=== PATIENT | male | born 1960 | race Caucasian/White ===

== ENCOUNTER 2020-10-20 12:49 | Inpatient (IN) ==
[2020-10-20] MEDS ORDERED: THIAMINE HCL 200 MG in SODIUM CHLORIDE 0.9% 50 ML IV STA (13:12)
[2020-10-20] MEDS ORDERED: FOLIC ACID 1 MG in SYRINGE 9.8 ML IV STA (13:12)
--- NOTE | 2020-10-20 13:21 | Emergency Department Note ---
Impression & Plan Abdominal ascites, Alcohol abuse ED Provider Note Provider: Dusty Emmanuel MD DATE OF SERVICE:10/20/2020 CHIEF COMPLAINT: Shortness of breath, abdominal swelling HISTORY OF PRESENT ILLNESS: Patient is a 60-year-old gentleman history of hypertension GERD and prior stroke with some resultant left-sided weakness presenting today via ambulance from home due to some difficulty breathing as well as abdominal swelling. Patient states over the past several weeks (2-3) he is noted new onset of increased abdominal swelling as well as swelling of his legs. Patient denies any falls. Denies abdominal pain or nausea or vomiting. Patient denies fever chills. States his breathing is begun to got worse and he has been unable to walk or get to the bathroom given the swelling. Patient states he is a smoker and has a chronic cough that is unchanged. Patient states the swelling in his abdomen is bothering him some and denies a history of this. Station states he is a heavy alcohol drinker and last drank last night with beer and vodka. Patient states he is not been taking his blood pressure medicine or other medicine for several months. He reports a history of prior stroke with some left-sided weakness previously. States has been feeling more fatigued but denies any confusion or headache. REVIEW OF SYSTEMS: A total of 10 review of systems was obtained and negative except as stated above in the HPI. PAST MEDICAL HISTORY: As noted above MEDICATIONS: States has not been taking his recent prescribed medications SOCIAL HISTORY: Smoker, heavy alcohol user, lives at home in apartment alone PHYSICAL EXAM: GENERAL: alert and oriented seated on stretcher Head: normocephalic and atraumatic EYES: No injection, discharge or icterus. NECK: Trachea midline. Supple. ENT: Mucous membranes pink and moist. LUNGS: Airway patent. No retractions. Breath sounds with some expiratory wheeze and diminished bases. Slightly tachypneic HEART: Regular tachycardic rate and rhythm. No chest wall tenderness ABDOMEN: Soft and non-tender, without guarding or rebound but obviously signific antly distended but not tense. There is some protuberance of the umbilical which is nontender. The inguinal and scrotal area has urine and some stool present with erythema and some skin breakdown present in the inguinal creases as well as over the scrotum. No crepitus appreciated. SKIN: Acyanotic, warm, dry, without rashes EXTREMITIES: Appears to be some chronic stasis changes lower extremities with 2+ edema bilaterally. NEUROLOGICAL: No aphasia. No facial droop or slurred speech. Limited to no motor function of the left arm and leg. Patient states is chronic from prior stroke. Sensation left arm and leg intact. EK bpm sinus tachycardia the PVC or PAC. No acute ST segment elevation is noted some anterior T wave inversions are noted. CONTINUOUS CARDIAC MONITORING: was ordered and showed a heart rate of 120 bpm in sinus tachycardia Patient's laboratory studies and imaging reviewed. Differential includes Infection, dehydration, metabolic abnormality, hypo/hyperglycemia, electrolyte disturbance, anemia, hypoxia, cardiac sources, intracerebral event, toxicologic, neurologic, as well as other pathologies. IMPRESSION/MEDICAL DECISION MAKING: Patient appears to have significant lower extremity swelling as well as abdominal swelling. With his history of heavy alcohol use wonder if this is new onset ascites from cirrhosis. He is wheezy and a heavy smoker. X-rays obtained as well as Covid test. Question if his breathing is again resolved from the abdominal distention but likely not hypoxic here. Denies significant josiah pain, nausea vomiting, or fevers and lower suspicion for acute infectious cause at this point. Basic labs, ammonia, INR, and medical alcohol were sent in addition to basic labs. Lower suspicion this is ACS but an EKG and troponin were obtained. Given some IV folic acid and thiamine given his history of alcohol abuse. Patient denies significant history of alcohol withdrawal and denies hallucinations at this point. Last drink was again noted by the patient to be last evening. Patient is willing for further inpatient care at to cons ider reducing and possibly stopping drinking but states this would be quite hard. CBC shows no leukocytosis or anemia. INR is not elevated. Lipase not elevated doubt pancreatitis. AST and ALT not elevated. Mild hyponatremia of 130 is noted without significantly abnormal renal function. Magnesium not abnormal. Potassium within normal limits. Troponin undetectable. Albumin is slightly low at 2.5. Bilirubin 1.6. Chest x-ray per my review and the radiology poor questions right pleural effusion and possible right lower lobe density likely atelectasis patient does not have significant clinical symptoms for pneumonia at this time. Do question if some of his hypertension and tachycardia here are related to early withdrawal from alcohol. Given a dose of 5% albumin to help with intravascular repletion and to try to help hold some of the fluid intravascularly as opposed to third spacing. Patient was in agreement the plan for admission and the hospitalist contacted. Hospitalist ordered Zamora with nursing & myself attempted place this Zamora but the patient has a buried penis. Were unsuccessful. There is some irritation and poorly kept area in the inguinal and genital region the patient states has not been able to properly care for himself there. Do not believe this represents Sarah's gangrene. Hospitalist team aware. DIAGNOSIS: Abdominal ascites, alcohol abuse DISPOSITION: Hospitalist will evaluate Patient was agreeable with this plan. 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 HTN (hypertension) Hx of fracture of rib Lumbar compression fracture Surgical History (Updated 10/20/20 @ 15:23 by Stacy Sellers PA-C) History of ankle surgery History of sinus surgery History of total knee arthroplasty Family History (Updated 10/20/20 @ 15:35 by Stacy Sellers PA-C) Father Diabetes Heart disease CKD (chronic kidney disease) Other Family history non-contributory Social History (Updated 10/20/20 @ 15:35 by Stacy Sellers PA-C) Smoking Status: Current every day smoker Tobacco Type: Cigarettes packs per day: 2.5; Cigarettes Per Day: 2-3PPD; Do You Dip or Chew Tobacco: No; Hx Alcohol Use: Yes Alcohol type: beer and hard liquor Alcohol Intake Frequency Comment: 7 drinks per day. 3 beers, 3-4 shots Hx Substance Use: Yes Prescribed Medications: Marijuana Preferred Language: Lao Communication Ability: Effective Physical Therapist Aide Required: No Beliefs That Will Affect Care: None marital status: Current Living Situation: Alone current occupational status: disabled Other Information That Helps Us Care for You: No Feels Safe at Home: Yes Safety Concerns: Feels Safe At This Time Assistive Devices: Cane and Glasses Allergies Allergies Allergy/AdvReac Type Severity Reaction Status Date / Time latex Allergy Intermediate RASH Verified 10/20/20 13:57 bee venom protein (honey bee) Allergy Unknown CARDIAC Unverified 10/20/20 13:57 SYMPTOMS bupropion Allergy Unknown Verified 10/20/20 13:57 cat dander Allergy Unknown HIVES Verified 10/20/20 13:57 codeine AdvReac Unknown INTOLERANCE Verified 10/20/20 13:57 -INSOMNIA Home Meds Home Medications Medication Instructions Recorded Confirmed naproxen sodium [Aleve] 440 mg PO Q12 PRN 09/03/18 10/20/20 omeprazole 20 mg PO DAILY 10/20/20 10/20/20 Results & Data (ED) Vital Signs Vital Signs - 24 hr 10/20/20 12:56 10/20/20 13:00 10/20/20 13:03 Temperature 36.7 C Temperature Source Oral Pulse Rate 124 H 124 H 125 H Pulse Rate [Left Finger] Pulse Rate from SpO2 Sensor 126 H 125 H Respiratory Rate 30 H 30 H 28 H Respiratory Depth Shallow Respiratory Pattern Tachypnea Blood Pressure 174/105 H 174/105 H Blood Pressure [Right Arm] Blood Pressure Mean 114 128 Blood Pressure Mean [Right Arm] Pulse Oximetry 97 96 99 Oxygen Delivery Method Room Air Oxygen Flow Rate Sepsis Recent Fever Within 48 Hours No Sepsis New/Unexplained Change in Mental Status No Sepsis Action Taken by Nursing No Action Required 10/20/20 13:30 10/20/20 13:34 10/20/20 14:00 Temperature Temperature Source Pulse Rate 116 H 111 H Pulse Rate [Left Finger] Pulse Rate from SpO2 Sensor 116 H 102 H Respiratory Rate 28 H 24 Respiratory Depth Respiratory Pattern Blood Pressure 176/101 H Blood Pressure [Right Arm] Blood Pressure Mean 115 Blood Pressure Mean [Right Arm] Pulse Oximetry 95 99 96 Oxygen Delivery Method Room Air Oxygen Flow Rate Sepsis Recent Fever Within 48 Hours Sepsis New/Unexplained Change in Mental Status Sepsis Action Taken by Nursing 10/20/20 14:01 10/20/20 14:31 10/20/20 14:49 Temperature Temperature Source Pulse Rate 120 H 121 H 122 H Pulse Rate [Left Finger] 122 H Pulse Rate from SpO2 Sensor 121 H 127 H 122 H Respiratory Rate 28 H 27 H 23 Respiratory Depth Respiratory Pattern Blood Pressure 149/103 H Blood Pressure [Right Arm] 149/103 H Blood Pressure Mean 122 Blood Pressure Mean [Right Arm] 118 Pulse Oximetry 95 95 95 Oxygen Delivery Method Room Air Oxygen Flow Rate Sepsis Recent Fever Within 48 Hours Sepsis New/Unexplained Change in Mental Status Sepsis Action Taken by Nursing 10/20/20 15:00 10/20/20 15:01 10/20/20 15:30 Temperature Temperature Source Pulse Rate 123 H 120 H 126 H Pulse Rate [Left Finger] Pulse Rate from SpO2 Sensor 130 H 121 H 123 H Respiratory Rate 22 24 29 H Respiratory Depth Respiratory Pattern Blood Pressure 150/106 H 178/121 H Blood Pressure [Right Arm] Blood Pressure Mean 110 128 Blood Pressure Mean [Right Arm] Pulse Oximetry 91 94 95 Oxygen Delivery Method Oxygen Flow Rate Sepsis Recent Fever Within 48 Hours Sepsis New/Unexplained Change in Mental Status Sepsis Action Taken by Nursing 10/20/20 15:31 10/20/20 16:00 10/20/20 16:02 Temperature Temperature Source Pulse Rate 120 H 129 H 122 H Pulse Rate [Left Finger] Pulse Rate from SpO2 Sensor 112 H 122 H Respiratory Rate 29 H 29 H 27 H Respiratory Depth Respiratory Pattern Blood Pressure 151/111 H Blood Pressure [Right Arm] Blood Pressure Mean 122 Blood Pressure Mean [Right Arm] Pulse Oximetry 94 94 Oxygen Delivery Method Oxygen Flow Rate Sepsis Recent Fever Within 48 Hours Sepsis New/Unexplained Change in Mental Status Sepsis Action Taken by Nursing 10/20/20 16:26 Temperature 36.7 C Temperature Source Oral Pulse Rate 122 H Pulse Rate [Left Finger] Pulse Rate from SpO2 Sensor Respiratory Rate 27 H Respiratory Depth Respiratory Pattern Blood Pressure 151/111 H Blood Pressure [Right Arm] Blood Pressure Mean Blood Pressure Mean [Right Arm] Pulse Oximetry 94 Oxygen Delivery Method Nasal Cannula Oxygen Flow Rate 3 Sepsis Recent Fever Within 48 Hours Sepsis New/Unexplained Change in Mental Status Sepsis Action Taken by Nursing Laboratory Data Result diagrams: 10/20/20 13:12 10/20/20 13:12 Lab Results 10/20/20 10/20/20 10/20/20 Range/Units 13:12 13:12 13:12 WBC 10.71 (4.8-10.8) K/uL RBC 4.49 L (4.7-6.1) M/uL Hgb 14.6 (14.0-18.0) g/dL Hct 42.6 (42-52) % MCV 94.9 (80-100) fL MCH 32.5 (25-34) pg MCHC 34.3 (32-36) g/dL RDW Std Deviation 53.7 H (36.4-46.3) fL RDW Coeff of Zachary 15.5 H (11.5-14.5) % Plt Count 236 (130-400) K/uL MPV 9.9 (7.4-10.4) fL Immature Gran % (Auto) 0.2 % Neut % (Auto) 82.5 % Lymph % (Auto) 6.4 % [place] % (Auto) 10.1 % Eos % (Auto) 0.3 % Baso % (Auto) 0.5 % Neut # (Auto) 8.84 H (1.4-6.5) K/uL Lymph # (Auto) 0.69 L (1.2-3.4) K/uL [place] # (Auto) 1.08 H (0.11-0.59) K/uL Eos # (Auto) 0.03 (0-0.5) K/uL Baso # (Auto) 0.05 (0-0.2) K/uL Immature Gran # (Auto) 0.02 (0.00-0.02) K/uL PT 11.9 (9.0-12.0) Seconds INR 1.1 (0.9-1.1) APTT 28.5 (21.0-31.0) Seconds PTT Ratio 1.0 Sodium (136-145) mmol/L Potassium (3.5-5.1) mmol/L Chloride (98-107) mmol/L Carbon Dioxide (21-32) mmol/L Anion Gap (3-11) BUN (7-18) mg/dl Creatinine (0.6-1.4) mg/dl Est Cr Clr Drug Dosing ml/min Est GFR ( Amer) Est GFR (Non-Af Amer) BUN/Creatinine Ratio (10-20) Glucose (70-99) mg/dl Lactate 3.6 H* (0.4-2.0) mmol/L Calcium (8.5-10.1) mg/dl Phosphorus (2.5-4.9) mg/dl Magnesium (1.8-2.4) mg/dl Total Bilirubin (0.2-1) mg/dl AST (15-37) U/L ALT (12-78) U/L Alkaline Phosphatase (45-117) U/L Ammonia (11-32) umol/L Troponin I (0-0.045) ng/ml Total Protein (6.4-8.2) gm/dl Albumin (3.4-5.0) gm/dl Globulin (2.5-4.0) gm/dl Albumin/Globulin Ratio (0.9-2) Lipase (73-393) U/L Ethyl Alcohol mg/dL (0-3) mg/dl COVID-19 Eval Order SARS-CoV-2 (PCR) (Negative) Influenza Type A (PCR) (Neg) Influenza Type B (PCR) (Neg) RSV (RT-PCR) (Neg) 10/20/20 10/20/20 10/20/20 Range/Units 13:12 13:29 13:29 WBC (4.8-10.8) K/uL RBC (4.7-6.1) M/uL Hgb (14.0-18.0) g/dL Hct (42-52) % MCV (80-100) fL MCH (25-34) pg MCHC (32-36) g/dL RDW Std Deviation (36.4-46.3) fL RDW Coeff of Zachary (11.5-14.5) % Plt Count (130-400) K/uL MPV (7.4-10.4) fL Immature Gran % (Auto) % Neut % (Auto) % Lymph % (Auto) % [place] % (Auto) % Eos % (Auto) % Baso % (Auto) % Neut # (Auto) (1.4-6.5) K/uL Lymph # (Auto) (1.2-3.4) K/uL [place] # (Auto) (0.11-0.59) K/uL Eos # (Auto) (0-0.5) K/uL Baso # (Auto) (0-0.2) K/uL Immature Gran # (Auto) (0.00-0.02) K/uL PT (9.0-12.0) Seconds INR (0.9-1.1) APTT (21.0-31.0) Seconds PTT Ratio Sodium 130 L (136-145) mmol/L Potassium 4.1 (3.5-5.1) mmol/L Chloride 102 (98-107) mmol/L Carbon Dioxide 24 (21-32) mmol/L Anion Gap 4.0 (3-11) BUN 16 (7-18) mg/dl Creatinine 0.57 L (0.6-1.4) mg/dl Est Cr Clr Drug Dosing 188.4 ml/min Est GFR ( Amer) 128.5 Est GFR (Non-Af Amer) 110.8 BUN/Creatinine Ratio 27.2 H (10-20) Glucose 86 (70-99) mg/dl Lactate (0.4-2.0) mmol/L Calcium 8.4 L (8.5-10.1) mg/dl Phosphorus 2.4 L (2.5-4.9) mg/dl Magnesium 2.2 (1.8-2.4) mg/dl Total Bilirubin 1.6 H (0.2-1) mg/dl AST 41 H (15-37) U/L ALT 10 L (12-78) U/L Alkaline Phosphatase 139 H (45-117) U/L Ammonia (11-32) umol/L Troponin I < 0.015 (0-0.045) ng/ml Total Protein 7.5 (6.4-8.2) gm/dl Albumin 2.5 L (3.4-5.0) gm/dl Globulin 5.0 H (2.5-4.0) gm/dl Albumin/Globulin Ratio 0.5 L (0.9-2) Lipase 113 (73-393) U/L Ethyl Alcohol mg/dL (0-3) mg/dl COVID-19 Eval Order [facility]sv at [facility] SARS-CoV-2 (PCR) NEGATIVE (Negative) Influenza Type A (PCR) Negative (Neg) Influenza Type B (PCR) Negative (Neg) RSV (RT-PCR) Negative (Neg) 10/20/20 10/20/20 10/20/20 Range/Units 13:34 13:34 15:12 WBC (4.8-10.8) K/uL RBC (4.7-6.1) M/uL Hgb (14.0-18.0) g/dL Hct (42-52) % MCV (80-100) fL MCH (25-34) pg MCHC (32-36) g/dL RDW Std Deviation (36.4-46.3) fL RDW Coeff of Zachary (11.5-14.5) % Plt Count (130-400) K/uL MPV (7.4-10.4) fL Immature Gran % (Auto) % Neut % (Auto) % Lymph % (Auto) % [place] % (Auto) % Eos % (Auto) % Baso % (Auto) % Neut # (Auto) (1.4-6.5) K/uL Lymph # (Auto) (1.2-3.4) K/uL [place] # (Auto) (0.11-0.59) K/uL Eos # (Auto) (0-0.5) K/uL Baso # (Auto) (0-0.2) K/uL Immature Gran # (Auto) (0.00-0.02) K/uL PT (9.0-12.0) Seconds INR (0.9-1.1) APTT (21.0-31.0) Seconds PTT Ratio Sodium (136-145) mmol/L Potassium (3.5-5.1) mmol/L Chloride (98-107) mmol/L Carbon Dioxide (21-32) mmol/L Anion Gap (3-11) BUN (7-18) mg/dl Creatinine (0.6-1.4) mg/dl Est Cr Clr Drug Dosing ml/min Est GFR ( Amer) Est GFR (Non-Af Amer) BUN/Creatinine Ratio (10-20) Glucose (70-99) mg/dl Lactate 2.2 H* (0.4-2.0) mmol/L Calcium (8.5-10.1) mg/dl Phosphorus (2.5-4.9) mg/dl Magnesium (1.8-2.4) mg/dl Total Bilirubin (0.2-1) mg/dl AST (15-37) U/L ALT (12-78) U/L Alkaline Phosphatase (45-117) U/L Ammonia 40.5 H (11-32) umol/L Troponin I (0-0.045) ng/ml Total Protein (6.4-8.2) gm/dl Albumin (3.4-5.0) gm/dl Globulin (2.5-4.0) gm/dl Albumin/Globulin Ratio (0.9-2) Lipase (73-393) U/L Ethyl Alcohol mg/dL 18.6 H (0-3) mg/dl COVID-19 Eval Order SARS-CoV-2 (PCR) (Negative) Influenza Type A (PCR) (Neg) Influenza Type B (PCR) (Neg) RSV (RT-PCR) (Neg) Administered Medications Discontinued Medications Furosemide (Furosemide 40 Mg/4 Ml Vial) 20 mg IV NOW STA Stop: 10/20/20 15:16 Last Admin: 10/20/20 16:16 Dose: 20 mg Documented by: [id number] Thiamine HCl 200 mg/ Sodium (Chloride) 52 mls @ 208 mls/hr IV NOW STA Stop: 10/20/20 13:26 Last Infusion: 10/20/20 13:50 Dose: 0 mls/hr Documented by: [id number] Admin: 10/20/20 13:35 Dose: 208 mls/hr Documented by: [id number] Folic Acid 1 mg/ Syringe 10 mls @ 5 mls/min IV NOW STA Stop: 10/20/20 13:13 Last Admin: 10/20/20 13:34 Dose: 5 mls/min Documented by: [id number] Albumin Human (Albumin 5%) 250 mls @ 500 mls/hr IV ONE ONE Stop: 10/20/20 14:39 Last Admin: 10/20/20 14:41 Dose: 500 mls/hr Documented by: [id number] Discharge Plan Visit Data Chief Complaint: Abdominal Pain ED Provider: Dusty Emmanuel Discharge Problem: Abdominal ascites, Alcohol abuse Patient Disposition: Being Evaluated by Hospitalist Discharge Instructions Interventions: ED Discharge Assessment Last Done: 10/20/20 16:26 Forms Stand Alone Forms: [employer] Prescriptions Prescriptions: No Action naproxen sodium [Aleve] 220 mg Capsule 440 mg PO Q12 PRN (Reason: Pain) RF: 0 omeprazole 20 mg Tablet,Delayed Release (Dr/Ec) 20 mg PO DAILY RF: 0 Referrals Referrals: Abner Singh MD [Primary Care Provider] - Discharge Problem: Abdominal ascites Qualifiers: Ascites type: other type Qualified Code(s): R18.8 - Other ascites
[2020-10-20 13:24] LABS: Basophils # (auto) 0.05 K/uL (0-0.2); Basophils % (auto) 0.5 %; Eosinophils # (auto) 0.03 K/uL (0-0.5); Eosinophils % (auto) 0.3 %; Hematocrit (blood only) 42.6 % (42-52); Hemoglobin 14.6 g/dL (14.0-18.0); Immature Granulocytes # (auto) 0.02 K/uL (0.00-0.02); Immature Granulocytes % (auto) 0.2 %; Lymphocytes # (auto) 0.69 K/uL (1.2-3.4); Lymphocytes % (auto) 6.4 %; Mean Corpuscular Hemoglobin 32.5 pg (25-34); Mean Corpuscular Hgb Conc 34.3 g/dL (32-36); Mean Corpuscular Volume 94.9 fL (80-100); Mean Platelet Volume 9.9 fL (7.4-10.4); Monocytes # (auto) 1.08 K/uL (0.11-0.59); Monocytes % (auto) 10.1 %; Neutrophils # (auto) 8.84 K/uL (1.4-6.5); Neutrophils % (auto) 82.5 %; Platelet Count 236 K/uL (130-400); RDW Coefficient of Variation 15.5 % (11.5-14.5); RDW Standard Deviation 53.7 fL (36.4-46.3); Red Blood Count 4.49 M/uL (4.7-6.1); White Blood Count 10.71 K/uL (4.8-10.8)
[2020-10-20 13:35] LABS: INR 1.1 (0.9-1.1); Partial Thromboplastin Time 28.5 Seconds (21.0-31.0); Prothrombin Time 11.9 Seconds (9.0-12.0)
[2020-10-20 13:42] LABS: Alanine Aminotransferase 10 U/L (12-78); Albumin Level 2.5 gm/dl (3.4-5.0); Aspartate Aminotransferase 41 U/L (15-37); BUN Creatinine Ratio 27.2 (10-20); Blood Urea Nitrogen 16 mg/dl (7-18); Calcium 8.4 mg/dl (8.5-10.1); Carbon Dioxide 24 mmol/L (21-32); Chloride 102 mmol/L (98-107); Creatinine Clr Calc Pharmacy 188.4 ml/min; Est GFR (African American) 128.5; Est GFR (Non-African American) 110.8; Glucose 86 mg/dl (70-99); Lipase 113 U/L (73-393); Magnesium 2.2 mg/dl (1.8-2.4); Potassium 4.1 mmol/L (3.5-5.1)
[2020-10-20 13:47] LABS: Albumin Globulin Ratio 0.5 (0.9-2); Alkaline Phosphatase 139 U/L (45-117); Bilirubin,Total 1.6 mg/dl (0.2-1); Phosphorus 2.4 mg/dl (2.5-4.9); Total Protein 7.5 gm/dl (6.4-8.2); Troponin I < 0.015 ng/ml (0-0.045)
--- NOTE | 2020-10-20 13:47 | XRay Report ---
XR chest 1V portable HISTORY: Shortness of breath. COMPARISON: None. FINDINGS: There are low lung volumes. The heart is normal in size. Old, healed left-sided rib fractur es. The left lung is clear. No pneumothorax. There is a trace right pleural effusion and small right basilar densities. IMPRESSION: Trace right pleural effusion and a small right basilar density. This favors atelectasis. A pneumonia could also a similar appearance in the appropriate clinical setting. ACT 112: Negative or not required by law. Electronically signed by: Vasile Danielle M.D. 10/20/2020 1:46 PM
[2020-10-20] MEDS ORDERED: ALBUMIN 5% 250 ML IV ONE (14:10)
--- NOTE | 2020-10-20 14:37 | History & Physical Report ---
Date of Service October 20, 2020 Assessment & Plan (1) Cirrhosis of liver: (2) Abdominal ascites: (3) Hyponatremia: Patient is a 60 yo male with what appears to be acute decompensated cirrhosis with volume overload and ascites/abdominal distention. This is likely secondary to history of alcohol abuse. Admit to tele. Patient's workup so far only shows mild LFT elevation and elevate total bili. US liver confirmed cirrhotic appearing liver and small amount of ascites. Patient was given Folate, thiamine and albumin in the ED. Start IV Lasix 20 mg now. Recheck BMP tonight. Recommended insert Zamora catheter with IV diuresis and incontinence at home. Patient was agreeable to this. GI consultation US guided aspiration paracentesis Monitor BP closely. Hypertensive during admission. IV Lasix likely will Check acute hepatitis panel, PREETI, A1C, Lipids, Anti-smooth muscle Ab Recheck CBC, CMP in AM Check Echo as well with volume overload Check CT Abdomen/Pelvis (4) Alcohol abuse: Patient drinks approximately 3 beers & 3-4 shots per day Continue to monitor for signs of alcohol W/D. Alcohol w/d orders placed for PRN lorazepam Continue daily thiamine and folic acid. (5) HTN (hypertension): Hypertensive upon admission. Will continue to monitor. IV Lasix will likely lower BP. Patient is supposed to be on lisinopril 20 mg as outpatient, but hasn't been taking for a few months. May need to add antihypertensive agent pending improvement in BP (6) Scrotal rash: (7) Incontinence: (8) Urinary retention: Patient with ongoing urinary retention and incontinence for the past few weeks now causing scrotal erythema and rash. Recommended starting IV Clindamycin for concern of scrotal cellulitis. Add Nystatin powder and Barrier Cream daily Urology consult LEON for Zamora catheter placement and urinary retention. Nursing unable to place Zamora bedside. Patient is agreeable to Zamora UA/Cx pending sample collection (9) DVT prophylaxis: SQ Lovenox 40 daily History of Present Illness Chief Complaint: Volume overload Primary Care Provider: Abner Singh MD Patient is a 60 yo male presenting to the ED with complaints of SOB, edema, and abdominal swelling x multiple weeks. He has PMHx including hx of stroke in 2004 with subsequent chronic left sided hemiparesis, HTN, alcoholism, & chronic back pain from hx of vertebral fracture. Patient states that he started to notice incontinence about 1-2 months ago, and then he progressively had worsening SOB, NICOLE, and difficulty ambulating. He had a friend visit him 2 weeks a part, and she felt that his abdomen was severely swollen. She recommended he go to the hospital for evaluation. He notes that he has a chronic cough which is no worse than usual. He smokes 2-3 PPD cigarettes and 2-3 'bowls' per day of marijuana. He drinks approximately 3 beers and 3-4 shots of vodka per day. He has been doing this for years. He states that the shots of vodka are mostly to help him sleep. He has not slept well his entire life. Patient denies appetite changes, chest pain, abdominal pain. He typically does not have problems with incontinence until recently. He unfortunately started to develop a rash on his scrotum the past few days as well because of the incontinence which is painful. He has also had ongoing diarrhea for a few weeks as well. Patient is supposed to be on Lisinopril 20 mg daily for HTN, but he hasn't taken this in "months". Upon presentation to the ED, he appears severely volume overloaded with distended abdomen and edema of B/L LE. He was hypertensive and tachycardic. CXR showed trace right pleural effusion and small right basilar density. COVID- 19 test negative. Liver US showed cirrhosis with fatty changes along with a "small amount of ascites". Labs include: Hyponatremia with sodium of 130 Preserved renal function with Creatinine 0.57. Slightly decreased phosphorus of 2.4, Mag within normal. AST mildly elevated at 41, normal AST, total bilirubin 1.6. Troponin undetectable Albumin low at 2.5 Lipase within norm Alcohol level 18 (elevated). In the ED, patient was given Thiamine, Folate, and Albumin. Allergies Allergy/AdvReac Type Severity Reaction Status Date / Time latex Allergy Intermediate RASH Verified 10/20/20 13:57 bee venom protein (honey bee) Allergy Unknown CARDIAC Unverified 10/20/20 13:57 SYMPTOMS bupropion Allergy Unknown Verified 10/20/20 13:57 cat dander Allergy Unknown HIVES Verified 10/20/20 13:57 codeine AdvReac Unknown INTOLERANCE Verified 10/20/20 13:57 -INSOMNIA Home Medications Medication Instructions Recorded Confirmed Type naproxen sodium [Aleve] 440 mg PO Q12 PRN 09/03/18 10/20/20 History omeprazole 20 mg PO DAILY 10/20/20 10/20/20 History 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 HTN (hypertension) Hx of fracture of rib Lumbar compression fracture Surgical History (Updated 10/20/20 @ 15:23 by Stacy Sellers PA-C) History of ankle surgery History of sinus surgery History of total knee arthroplasty Family History (Updated 10/20/20 @ 15:35 by Stacy Sellers PA-C) Father Diabetes Heart disease CKD (chronic kidney disease) Other Family history non-contributory Social History (Updated 10/20/20 @ 15:35 by Stacy Sellers PA-C) Smoking Status: Current every day smoker Tobacco Type: Cigarettes packs per day: 2.5; Cigarettes Per Day: 2-3PPD; Do You Dip or Chew Tobacco: No; Hx Alcohol Use: Yes Alcohol type: beer and hard liquor Alcohol Intake Frequency Comment: 7 drinks per day. 3 beers, 3-4 shots Hx Substance Use: Yes Prescribed Medications: Marijuana Preferred Language: German Communication Ability: Effective Service Engineer Required: No Beliefs That Will Affect Care: None marital status: Current Living Situation: Alone current occupational status: disabled Other Information That Helps Us Care for You: No Feels Safe at Home: Yes Safety Concerns: Feels Safe At This Time Assistive Devices: Cane and Glasses Review of Systems Review of Systems: All systems reviewed & are unremarkable except as noted in HPI & below Physical Exam Constitutional: + morbidly obese; no acute distress and no altered mental status Eyes: PERRL, conjunctivae normal, anicteric sclerae ENMT: external ear and nose normal, oropharynx normal Neck: trachea midline, no thyromegaly Respiratory: normal respiratory effort and + cough; no respiratory distress Coarse breath sounds throughout all lungs nunes. Cardiovascular: Rate/Rhythm: + tachycardic (distant sounding due to body habitus and coarse breath sounds) Extremities: + edema (B/L LE 2+ pitting edema) Gastrointestinal (Abdomen): Inspection/Auscultation: + abdomen distended (Severely ) and normal bowel sounds (distant ) Percussion/Palpation: abdomen soft; abdomen nontender Musculoskeletal: Head/Neck/Chest: normocephalic, head atraumatic and neck supple Genitourinary: Defer scrotal exam to physician note Results & Data Results & Data ([facility]) Vital Signs (Past 12 Hours) Vital Signs Temp Pulse Resp BP Pulse Ox 10/20/20 13:34 99 10/20/20 13:03 36.7 C 125 H 28 H 174/105 H 99 Laboratory Results Laboratory Results - last 24 hr 10/20/20 10/20/20 10/20/20 13:12 13:12 13:12 WBC 10.71 RBC 4.49 L Hgb 14.6 Hct 42.6 MCV 94.9 MCH 32.5 MCHC 34.3 RDW Std Deviation 53.7 H RDW Coeff of Zachary 15.5 H Plt Count 236 MPV 9.9 Immature Gran % (Auto) 0.2 Neut % (Auto) 82.5 Lymph % (Auto) 6.4 Pratt % (Auto) 10.1 Eos % (Auto) 0.3 Baso % (Auto) 0.5 Neut # (Auto) 8.84 H Lymph # (Auto) 0.69 L Pratt # (Auto) 1.08 H Eos # (Auto) 0.03 Baso # (Auto) 0.05 Immature Gran # (Auto) 0.02 PT 11.9 INR 1.1 APTT 28.5 PTT Ratio 1.0 Sodium Potassium Chloride Carbon Dioxide Anion Gap BUN Creatinine Est Cr Clr Drug Dosing Est GFR ( Amer) Est GFR (Non-Af Amer) BUN/Creatinine Ratio Glucose Lactate 3.6 H* Calcium Phosphorus Magnesium Total Bilirubin AST ALT Alkaline Phosphatase Ammonia Troponin I Total Protein Albumin Globulin Albumin/Globulin Ratio Lipase Ethyl Alcohol mg/dL COVID-19 Eval Order SARS-CoV-2 (PCR) Influenza Type A (PCR) Influenza Type B (PCR) RSV (RT-PCR) 10/20/20 10/20/20 10/20/20 13:12 13:29 13:29 WBC RBC Hgb Hct MCV MCH MCHC RDW Std Deviation RDW Coeff of Zachary Plt Count MPV Immature Gran % (Auto) Neut % (Auto) Lymph % (Auto) Pratt % (Auto) Eos % (Auto) Baso % (Auto) Neut # (Auto) Lymph # (Auto) Pratt # (Auto) Eos # (Auto) Baso # (Auto) Immature Gran # (Auto) PT INR APTT PTT Ratio Sodium 130 L Potassium 4.1 Chloride 102 Carbon Dioxide 24 Anion Gap 4.0 BUN 16 Creatinine 0.57 L Est Cr Clr Drug Dosing 188.4 Est GFR ( Amer) 128.5 Est GFR (Non-Af Amer) 110.8 BUN/Creatinine Ratio 27.2 H Glucose 86 Lactate Calcium 8.4 L Phosphorus 2.4 L Magnesium 2.2 Total Bilirubin 1.6 H AST 41 H ALT 10 L Alkaline Phosphatase 139 H Ammonia Troponin I < 0.015 Total Protein 7.5 Albumin 2.5 L Globulin 5.0 H Albumin/Globulin Ratio 0.5 L Lipase 113 Ethyl Alcohol mg/dL COVID-19 Eval Order CovFluRsv at [facility] SARS-CoV-2 (PCR) Pending Influenza Type A (PCR) Pending Influenza Type B (PCR) Pending RSV (RT-PCR) Pending 10/20/20 10/20/20 13:34 13:34 WBC RBC Hgb Hct MCV MCH MCHC RDW Std Deviation RDW Coeff of Zachary Plt Count MPV Immature Gran % (Auto) Neut % (Auto) Lymph % (Auto) Pratt % (Auto) Eos % (Auto) Baso % (Auto) Neut # (Auto) Lymph # (Auto) Pratt # (Auto) Eos # (Auto) Baso # (Auto) Immature Gran # (Auto) PT INR APTT PTT Ratio Sodium Potassium Chloride Carbon Dioxide Anion Gap BUN Creatinine Est Cr Clr Drug Dosing Est GFR ( Amer) Est GFR (Non-Af Amer) BUN/Creatinine Ratio Glucose Lactate Calcium Phosphorus Magnesium Total Bilirubin AST ALT Alkaline Phosphatase Ammonia 40.5 H Troponin I Total Protein Albumin Globulin Albumin/Globulin Ratio Lipase Ethyl Alcohol mg/dL 18.6 H COVID-19 Eval Order SARS-CoV-2 (PCR) Influenza Type A (PCR) Influenza Type B (PCR) RSV (RT-PCR) Diagnostic Findings CXR: IMPRESSION: Trace right pleural effusion and a small right basilar density. This favors atelectasis. A pneumonia could also a similar appearance in the appropriate clinical setting. Liver US: IMPRESSION: 1. Suboptimal study due to the patient's body habitus and overlying bowel gas. 2. Cirrhotic liver demonstrating fatty change. 3. Small amount of ascites. 4. Cholelithiasis. No gallbladder wall thickening. Supervising Physician Co-Signing Physician Notes Newly diagnosed liver cirrhosis Ascites/lower extremity edema; decompensated cirrhosis Acute hyponatremia Scrotal cellulitis Possible urinary retention Alcohol abuse History of hypertension History of CVA History of GERD Placed under telemetry. Will obtain CT abdomen/pelvis. Obtain hepatic studies, iron panel, PREETI and AMA. We will obtain a transthoracic echo. Obtain hemoglobin A1c and lipid panel. Start patient on IV Lasix 20 mg. Obtain urology consult for Zamora catheter placement. Monitor ins and outs along with daily weights. Consult gastroenterology. Consult radiology for paracentesis. Start patient on clindamycin. Patient on CIWA protocol. Patient was seen and discussed with Stacy VELASCO. (1) Abdominal ascites Ascites type: other type Qualified Code(s): R18.8 - Other ascites
--- NOTE | 2020-10-20 14:37 | Ultrasound Report ---
ABDOMINAL ULTRASOUND, RIGHT UPPER QUADRANT HISTORY: swelling, ?cirrhosis. COMPARISON: Abdomen and pelvis CT 09/03/2018. FINDINGS: Suboptimal evaluation due to the patient's large body habitus. Pancreas: Obscured by overlying bowel gas. Liver: The liver is echogenic consistent with fatty change. The liver demonstrates a nodular contour consistent with cirrhosis. Small amount of perihepatic ascites is noted. There is also a small amount of ascites within the left upper quadrant. Gallbladder: There are few small gallstones. No gallbladder wall thickening. CBD: Obscured by overlying bowel gas. Right kidney: Not well visualized. IMPRESSION: 1. Suboptimal study due to the patient's body habitus and overlying bowel gas. 2. Cirrhotic liver demonstrating fatty change. 3. Small amount of ascites. 4. Cholelithiasis. No gallbladder wall thickening. ACT 112: Negative or not required by law. Electronically signed by: Vasile Danielle M.D. 10/20/2020 2:36 PM
[2020-10-20] MEDS ORDERED: FUROSEMIDE 40 MG/4 ML VIAL IV STA (15:15)
[2020-10-20 15:28] LABS: Influenza A virus by PCR Negative (Neg); Influenza B virus by PCR Negative (Neg); RSV by PCR Negative (Neg); SARS CoV2 RNA(COVID-19) InHosp NEGATIVE (Negative)
[2020-10-20] MEDS ORDERED: LIDOCAINE 2% JELLY 5 ML TUBE ONE ×2 (16:46→21:33)
[2020-10-20] MEDS ORDERED: LORazepam 1 MG TAB PO PRN ×2 (16:59)
[2020-10-20] MEDS ORDERED: POLYETHYLENE (MIRALAX) 17 GM PACK PO PRN (16:59)
[2020-10-20 17:27] LABS: Iron 65 mcg/dl (35-175); Total Iron Binding Capacity 242 mcg/dl (250-450)
[2020-10-20] MEDS: CLINDAMYCIN 300 MG in DEXTROSE 5% 50 ML IV SCH (17:28)
[2020-10-20] MEDS ORDERED: LIDOCAINE 2% JELLY 5 ML TUBE EXT STA (17:29)
[2020-10-20 18:00] LABS: Hepatitis B Surface Antigen Neg (Neg)
[2020-10-20 18:28] LABS: Hepatitis C IgG 13Yrs+Old_Rflx Neg (Neg)
[2020-10-20] MEDS ORDERED: OPTIRAY 320 125ml IV ONE (20:22)
[2020-10-20] MEDS: ENOXAPARIN INJ 40 MG/0.4 ML SYR SQ SCH (21:36)
[2020-10-20] MEDS: FOLIC ACID 1 MG TAB PO SCH (21:36)
[2020-10-20] MEDS: THIAMINE HCL 100 MG TAB PO SCH (21:36)
[2020-10-20] MEDS: NYSTATIN CR 15 GM TUBE EXT SCH (21:37)
[2020-10-20] MEDS: MENTHOL-ZINC OXIDE 360 APPLN/120 GM TUBE EXT SCH (21:37)
[2020-10-20 21:41] LABS: Sodium 141 mmol/L (136-145)
[2020-10-20 23:14] LABS: BUN Creatinine Ratio 24.6 (10-20); Calcium 8.2 mg/dl (8.5-10.1); Creatinine Clr Calc Pharmacy 195.2 ml/min; Est GFR (African American) 130.4; Est GFR (Non-African American) 112.5; Potassium 3.8 mmol/L (3.5-5.1)
[2020-10-21] MEDS: CLINDAMYCIN 300 MG in DEXTROSE 5% 50 ML IV SCH ×4 (00:30→22:56)
--- NOTE | 2020-10-21 06:15 | Electrocardiogram Report ---
Test Reason : Blood Pressure : / mmHG Vent. Rate : 126 BPM Atrial Rate : 126 BPM P-R Int : 150 ms QRS Dur : 060 ms QT Int : 306 ms P-R-T Axes : 063 064 072 degrees QTc Int : 443 ms Sinus tachycardia Low voltage QRS Cannot rule out Anterior infarct , age undetermined Abnormal ECG When compared with ECG of 21-MAY-2020 20:24, Vent. rate has increased BY 50 BPM QRS duration has decreased Confirmed by Dennys Fermin ([id number]) on 10/21/2020 6:15:04 AM Referred By: ED Confirmed By:Dennys Fermin
--- NOTE | 2020-10-21 07:09 | CT Scan Report ---
CT abd pelvis IV con only CLINICAL HISTORY: Cirrhosis, ascites, abdominal distention COMPARISON STUDY: 09/03/2018 TECHNIQUE: The patient was scanned in a dynamic helical fashion during intravenous administration of 120 cc of Optiray 320 A dose lowering technique was utilized adhering to the principles of ALARA. CT DOSE: 2406.44 mGy.cm FINDINGS: Lower chest: There are multiple old left-sided rib deformities. There is mild basilar atelectasis. Th ere are coronary artery calcifications. Liver: The liver has a cirrhotic morphology. The hepatic and portal veins appear patent. No focal mas ses are visualized. Gallbladder: Cholelithiasis Spleen: Normal in size and attenuation. Pancreas: Unremarkable. Adrenal glands: Unremarkable. Kidneys: There is symmetric renal cortical enhancement. The kidneys are normal in size without hydron ephrosis. Bowel: There are no transition zones indicate bowel obstruction. Bowel evaluation is somewhat limited given the large volume of ascites, the patient's body habitus, and the lack of orally administered c ontrast. There is no evidence of acute diverticulitis. There is no convincing evidence of acute appen dicitis. There is a right lower quadrant calcification and a small appendicolith cannot be excluded Peritoneum: There is no free air. There is a large volume of ascites. Vasculature: The abdominal aorta is normal in course and caliber. Adenopathy: None. Pelvic viscera: There is an indwelling Zamora catheter Skeletal structures: No destructive osseous lesions are seen. There is an old L1 compression deformit y. IMPRESSION: 1. Large volume of ascites 2. No evidence of bowel obstruction. No evidence of free air 3. Hepatic cirrhosis 4. Cholelithiasis ACT 112: Negative or not required by law. Electronically signed by: Migel Chang M.D. 10/21/2020 7:08 AM
[2020-10-21 07:18] LABS: Hematocrit (blood only) 40.4 % (42-52); Hemoglobin 13.7 g/dL (14.0-18.0); Mean Corpuscular Hemoglobin 32.1 pg (25-34); Mean Corpuscular Hgb Conc 33.9 g/dL (32-36); Mean Corpuscular Volume 94.6 fL (80-100); Mean Platelet Volume 9.8 fL (7.4-10.4); Platelet Count 191 K/uL (130-400); RDW Coefficient of Variation 15.6 % (11.5-14.5); RDW Standard Deviation 53.9 fL (36.4-46.3); Red Blood Count 4.27 M/uL (4.7-6.1); White Blood Count 6.76 K/uL (4.8-10.8)
[2020-10-21 07:27] LABS: INR 1.2 (0.9-1.1); Prothrombin Time 12.4 Seconds (9.0-12.0)
[2020-10-21 08:03] LABS: Albumin Level 2.5 gm/dl (3.4-5.0); BUN Creatinine Ratio 22.3 (10-20); Calcium 8.8 mg/dl (8.5-10.1); Creatinine Clr Calc Pharmacy 172.4 ml/min; Est GFR (African American) 124.9; Est GFR (Non-African American) 107.8; Potassium 3.8 mmol/L (3.5-5.1)
[2020-10-21] MEDS: THIAMINE HCL 100 MG TAB PO SCH (08:04)
[2020-10-21] MEDS: FOLIC ACID 1 MG TAB PO SCH (08:04)
[2020-10-21] MEDS: PANTOprazole 40 MG TAB PO SCH (08:04)
[2020-10-21] MEDS: ENOXAPARIN INJ 40 MG/0.4 ML SYR SQ SCH (08:05)
[2020-10-21] MEDS: MENTHOL-ZINC OXIDE 360 APPLN/120 GM TUBE EXT SCH (08:05)
[2020-10-21] MEDS: NYSTATIN CR 15 GM TUBE EXT SCH ×2 (08:05→22:55)
[2020-10-21 08:06] LABS: Albumin Globulin Ratio 0.6 (0.9-2); Bilirubin,Total 1.9 mg/dl (0.2-1); Globulin 4.4 gm/dl (2.5-4.0); Total Protein 6.9 gm/dl (6.4-8.2)
[2020-10-21 08:14] LABS: Estimated Average Glucose 74 mg/dl; Hemoglobin A1C 4.2 % (4.5-5.6)
[2020-10-21 10:07] LABS: Folate (Folic Acid) 4.6 ng/ml (>5.38)
--- NOTE | 2020-10-21 10:09 | XCELERA ---
[id number]
--- NOTE | 2020-10-21 10:18 | Urology Consultation ---
Date of Consultation October 21, 2020 Assessment & Plan (1) Urinary retention: (2) Scrotal rash: (3) Incontinence: 60yo M admitted with volume overload and ascites/abdominal distention secondary to cirrhosis. Patient found to have urinary retention and scrotal rash likely r/t urinary incontinence. -Reviewed plan of care with Dr. Kaur -Patient is Afebrile -Labs reviewed, Wbc and creatinine are stable -Maintain Zamora catheter, recommend keeping catheter for 7-10 days -Recommend scrotal elevation when sitting/laying flat -Continue Nystatin and barrier cream to scrotum per primary team recommendations -Continue antibiotics and supportive care per primary team -Will continue to follow History of Present Illness Reason for Consultation: Urinary retention; Buried penis Attending Physician: Tatiana Peñaloza MD History of Present Illness The patient is a 60-year-old with a PMHx including chronic left sided hemiparesis post stroke 2004, HTN, alcoholism, and chronic back pain from hx of vertebral fracture who was admitted with acute decompensated cirrhosis with volume overload and ascites/abdominal distention likely secondary to hx of alcohol abuse. Urology consulted for ongoing urinary retention and incontinence for the past few weeks now causing scrotal erythema and rash. Chart review 10/21: Afebrile Wbc 6.76 Hgb 13.7 Cr 0.61 On IV Clindamycin for concern of scrotal cellulitis. Imaging: CT abd/pelvis 10/20- The kidneys are normal in size without hydronephrosis. Zamora catheter in place. IMPRESSION: 1. Large volume of ascites 2. No evidence of bowel obstruction. No evidence of free air 3. Hepatic cirrhosis 4. Cholelithiasis Patient examined at bedside this AM. Awake, resting in bed on arrival. Denies fevers or chills. Denies nausea/vomiting. Tolerating PO diet. Zamora catheter intact/patent, draining pink-tinged urine. Denies dysuria. He states his scrotum is sore/red. Denies any additional pain/discomfort at this time. Patient states that he started to notice urinary incontinence, urgency, and feelings of incomplete bladder emptying about 1-2 months ago. He states he typically does not have any urinary issues, until recently. He also started to develop a rash on his scrotum the past few days as well because of the incontinence. He has also had ongoing diarrhea for a few weeks as well. Patient has not seen Urology in the past. He denies any personal or family hx of kidney stones, bladder, kidney, or prostate cancers. No recent PSA. Unsure of last RIP. Current smoker x 45 years Allergies Allergy/AdvReac Type Severity Reaction Status Date / Time latex Allergy Intermediate RASH Verified 10/20/20 13:57 bee venom protein (honey bee) Allergy Unknown CARDIAC Unverified 10/20/20 13:57 SYMPTOMS bupropion Allergy Unknown Verified 10/20/20 13:57 cat dander Allergy Unknown HIVES Verified 10/20/20 13:57 codeine AdvReac Unknown INTOLERANCE Verified 10/20/20 13:57 -INSOMNIA Home Medications Medication Instructions Recorded Confirmed Type naproxen sodium [Aleve] 440 mg PO Q12 PRN 09/03/18 10/20/20 History omeprazole 20 mg PO DAILY 10/20/20 10/20/20 History Patient History Medical History (Updated 10/21/20 @ 12:54 by Tatiana Peñaloza MD) Cirrhosis of liver Hemiplegia, post-stroke "L sided weakness s/p stroke" History of prolactinoma HTN (hypertension) Hx of fracture of rib Lumbar compression fracture Surgical History (Updated 10/20/20 @ 15:23 by Stacy Sellers PA-C) History of ankle surgery History of sinus surgery History of total knee arthroplasty Family History (Updated 10/20/20 @ 15:35 by Stacy Sellers PA-C) Father Diabetes Heart disease CKD (chronic kidney disease) Other Family history non-contributory Social History (Updated 10/20/20 @ 15:35 by Stacy Sellers PA-C) Smoking Status: Current every day smoker Tobacco Type: Cigarettes packs per day: 2.5; Cigarettes Per Day: 2-3PPD; Do You Dip or Chew Tobacco: No; Hx Alcohol Use: Yes Alcohol type: beer and hard liquor Alcohol Intake Frequency Comment: 7 drinks per day. 3 beers, 3-4 shots Hx Substance Use: Yes Prescribed Medications: Marijuana Preferred Language: Faroese Communication Ability: Effective Db2 Dba Required: No Beliefs That Will Affect Care: None marital status: Current Living Situation: Alone current occupational status: disabled Other Information That Helps Us Care for You: No Feels Safe at Home: Yes Safety Concerns: Feels Safe At This Time Assistive Devices: Cane Review of Systems Constitutional: as per Subjective / HPI Respiratory: + cough Cardiovascular: no chest pain Gastrointestinal: as per Subjective / HPI Genitourinary: + as per Subjective / HPI Integumentary: as per Subjective / HPI Neurologic: as per Subjective / HPI Hematologic / Lymphatic: no problem reported Physical Exam Constitutional: + obese, cooperative and + edematous Neck: normal visual inspection Respiratory: + cough; no respiratory distress Cardiovascular: Extremities: + edema (b/l LE 2+) Gastrointestinal (Abdomen): Inspection/Auscultation: + abdomen distended (with ascites) Percussion/Palpation: abdomen nontender Musculoskeletal: Head/Neck/Chest: normocephalic Neurologic: awake; not confused Psychiatric: Orientation: alert and oriented x 3 Affect: euthymic affect Genitourinary: + edematous scrotum and + erythematous scrotum Zamora catheter intact, draining pink-tinged urine Scrotum tender, with some skin breakdown noted. Results & Data ([facility]) Vital Signs (Past 12 Hours) Vital Signs Temp Pulse Resp BP Pulse Ox 10/21/20 07:19 37.1 C 110 H 16 150/94 H 93 10/20/20 23:13 37.1 C 124 H 20 155/80 H 91 PG Care Time/CCT Total # of Minutes Spent Total Time Spent with Patient: Total time spent is greater than 50% in coordination of care (as documented) at patient's floor/unit and/or counseling patient: Coding Level of Care Code 27466 Inpt Consult Level 4 Diagnoses Urinary retention R33.9 Scrotal rash R21 Incontinence R32
--- NOTE | 2020-10-21 10:32 | Gastrointestinal Consultation ---
Date of Consultation October 21, 2020 Assessment & Plan (1) Cirrhosis of liver: New cirrhosis on imaging likely represents ETOH ascites, may have an overlap of NAFLD as well. Additional possible cause for ascites is CHF - appreciate that primary hospitalists arranged echo. Paracentesis already ordered. Added 7L limit, 25G albumin before and after. Orders are in place for fluid albumin, cell count and culture. Discussed important of alcohol cessation with patient. DF is low at 3.7, so no indication for steroids or Trental. Will r/o infection with blood/urine cultures (Had low grade temp, also infection can cause new/worsened ascites). Because renal function is good, would start diuretics - will order to start tomorrow after paracentesis and echocardiogram are reviewed. Will add doppler US to verify no PVT as if present, can cause ascites. Will add MRCP to verify no choledocholithiasis. Present on Admission?: Yes Supervising Physician Co-Signing Physician Notes I performed a history and physical examination of the patient today, including specifically on physical exam - soft abdomen. I have discussed the patient's management with the advanced practitioner. Please refer to the nurse practitioner's note for the documented findings and plan of care. Therapeutic tap today Diuretics tomorrow. MRCP. History of Present Illness Reason for Consultation: cirrhosis, ascites Requesting Physician: Dr. Bryson Attending Physician: Tatiana Peñaloza MD History of Present Illness Mr. Mitul Romo (who goes by Arjun) is a 60 yr old male pt of Dr Singh (though not seen in OP clinic since 2017) who has a hx of HTN and hemplegia post CVA. obesity. He was admitted yesterday for SOB and fluid overload with imaging suggestive of new cirrhosis with ascites. He has never been followed by GI previously. He admits to drinking about 6 drinks/day (total of beer plus shots) most recently on 10/19/20. He reports slowing increasing abdominal girth and lower leg edema x about 2 months. He denies any GI bleeding, confusion, yellow skin/eyes and tells me that he was never previously told that he has ascites. On exam, he is obese, with large ascites and peripheral edema and he does not have any confusion, tremor or asterixes. He was mildly febrile, wtih temp 37.7 yesterday w/o obvious site of infection. On arrival, CT with cirrhosis, large volume of ascites. US with similar. Gallstones are present but no mention of bile duct abnormalities on either study. T Bili is 1.9, INR i s 1.2 and other LFTs are normal. Hb is 13.7 and platelets 191. Pt is awake, alert, oriented. He denies abdominal pain, nausea, vomiting, yellow eyes or skin. Allergies Allergy/AdvReac Type Severity Reaction Status Date / Time latex Allergy Intermediate RASH Verified 10/20/20 13:57 bee venom protein (honey bee) Allergy Unknown CARDIAC Unverified 10/20/20 13:57 SYMPTOMS bupropion Allergy Unknown Verified 10/20/20 13:57 cat dander Allergy Unknown HIVES Verified 10/20/20 13:57 codeine AdvReac Unknown INTOLERANCE Verified 10/20/20 13:57 -INSOMNIA Home Medications Medication Instructions Recorded Confirmed Type naproxen sodium [Aleve] 440 mg PO Q12 PRN 09/03/18 10/20/20 History omeprazole 20 mg PO DAILY 10/20/20 10/20/20 History Patient History Medical History (Updated 10/21/20 @ 12:54 by Tatiana Peñaloza MD) Cirrhosis of liver Hemiplegia, post-stroke "L sided weakness s/p stroke" History of prolactinoma HTN (hypertension) Hx of fracture of rib Lumbar compression fracture Surgical History (Updated 10/20/20 @ 15:23 by Stacy Sellers PA-C) History of ankle surgery History of sinus surgery History of total knee arthroplasty Family History (Updated 10/20/20 @ 15:35 by Stacy Sellers PA-C) Father Diabetes Heart disease CKD (chronic kidney disease) Other Family history non-contributory Social History (Updated 10/20/20 @ 15:35 by Stacy Sellers PA-C) Smoking Status: Current every day smoker Tobacco Type: Cigarettes packs per day: 2.5; Cigarettes Per Day: 2-3PPD; Do You Dip or Chew Tobacco: No; Hx Alcohol Use: Yes Alcohol type: beer and hard liquor Alcohol Intake Frequency Comment: 7 drinks per day. 3 beers, 3-4 shots Hx Substance Use: Yes Prescribed Medications: Marijuana Preferred Language: Azerbaijani Communication Ability: Effective Ict Managers Required: No Beliefs That Will Affect Care: None marital status: Current Living Situation: Alone current occupational status: disabled Other Information That Helps Us Care for You: No Feels Safe at Home: Yes Safety Concerns: Feels Safe At This Time Assistive Devices: Cane Review of Systems Review of Systems: ROS: Gen: + chronic weakness post CVA, general deconditioning. Denies weakness, fevers, weight loss Eyes: No eye redness, or pain, no recent vision changes Resp: + mild SOB, no cough Cardio: No palpitations/irregular beats, no chest pain GI: Large ascites, no abdominal pain, no nausea/vomiting : Denies pain on urination Skin: No jaundice, itching or new rashes. has chronic lower leg edema and skin redness Physical Exam Constitutional: + ill appearing (chronically), + obese, cooperative, comfortable and + edematous Eyes: PERRL, conjunctivae normal, anicteric sclerae ENMT: external ear and nose normal, oropharynx normal Neck: trachea midline, no thyromegaly Respiratory: normal respiratory effort Auscultation: + rales (few at bases) and + wheezes (scattered) decreased air to the bases Cardiovascular: Rate/Rhythm: regular rate and regular rhythm Heart Sounds: no murmur Extremities: + edema (bilat lower let 2+ edema) Gastrointestinal (Abdomen): Inspection/Auscultation: + abdomen distended (with ascites) Percussion/Palpation: abdomen nontender Musculoskeletal: decreased strength both lower extremities left weaker than right Skin: no jaundice bilat lower legs with dry, red skin consistent with chronic lower leg edema Neurologic: awake; not confused Motor/Sensory: no tremor Psychiatric: A+Ox3, euthymic affect Affect: euthymic affect Genitourinary: zhou draining dark yellow urine Lymphatic: no cervical or axillary lymphadenopathy Results & Data ([facility]) Vital Signs (Past 12 Hours) Vital Signs Temp Pulse Resp BP Pulse Ox 10/21/20 07:19 37.1 C 110 H 16 150/94 H 93 10/20/20 23:13 37.1 C 124 H 20 155/80 H 91 Laboratory Results WBC 6.7, Hb 13.7, Hct 43, Platelets 191, Na 136, K 3.8, BUN 14 Cr 0.[address]. Diagnostic Findings CT abd/pelvis on 10/20/20: 1. Large volume of ascites 2. No evidence of bowel obstruction. No evidence of free air 3. Hepatic cirrhosis 4. Cholelithiasis US 10/20/20: 1. Suboptimal study due to the patient's body habitus and overlying bowel gas. 2. Cirrhotic liver demonstrating fatty change. 3. Small amount of ascites. 4. Cholelithiasis. No gallbladder wall thickening. CXR: 10/20/20: There are low lung volumes. The heart is normal in size. Old, healed left-sided rib fractures. The left lung is clear. No pneumothorax. There is a trace right pleural effusion and small right basilar densities. Medications Administered thiamine, folate
[2020-10-21] MEDS: ALBUMIN 25% 12.5 GM/50 ML VIAL IV SCH ×4 (12:01→15:45)
--- NOTE | 2020-10-21 12:54 | Hospitalist Progress Note ---
Date of Service October 21, 2020 Assessment & Plan (1) Cirrhosis of liver: (2) Abdominal ascites: (3) Hyponatremia: Patient is a 60 yo male with what appears to be acute decompensated cirrhosis with volume overload and ascites/abdominal distention. This is likely secondary to history of alcohol abuse. Normal ultrasound revealed cirrhosis. CT abdomen/pelvis was obtained which revealed significant ascites. GI has been consulted. Plan for paracentesis today. Zhou catheter in place for accurate ins and outs. AST at 32 and ALT at 9. Ammonia 40.5 on admission. LDL of 74. Lipase is not concerning. PREETI and anti-smooth muscle antibodies pending. Huang panel is pending. TTE Echo as well with volume overload. (4) Alcohol abuse: Patient drinks approximately 3 beers & 3-4 shots per day. Continue with CIWA protocol including thiamine/folic acid/multivitamin and Ativan as needed. Call today at 18.6. (5) HTN (hypertension): She remained hypertensive overnight. Holding [employer] lisinopril for now. (6) Scrotal rash: (7) Incontinence: (8) Urinary retention: Patient had urinary retention on admission. Zhou catheter was placed. And was also found to have significant scrotal erythema. Denies any penile discharge. We will continue with IV clindamycin for now. Continue with nystatin powder and Barrier Cream daily Urology consult LEON for Zhou catheter placement and urinary retention. Nursing unable to place Zhou bedside. Patient is agreeable to Zhou Will obtain scrotal ultrasound UA/Cx is pending. (9) DVT prophylaxis: SQ Lovenox 40 daily (10) SIRS (systemic inflammatory response syndrome): Admission and Anticipated Discharge Date Admission Date: October 20, 2020 Subjective Patient reports his primary complaint this morning is significant discomfort in the scrotum. Denies any chest pain but does report some shortness of breath. Endorses some abdominal discomfort. Denies any nausea or vomiting. Denies any chest pain or palpitations. Review of Systems Review of Systems: All systems reviewed & are unremarkable except as noted in HPI & below Physical Exam Physical Exam: General: A&Ox3. HENT: NCAT, MMM, EOMI Eyes: PERRLA Neck: Supple, normal range of motion CVS: normal rate and rhythm Resp: b/l crackles appreciated Abdomen: Soft, distended, nontender Extremities: 2+ lower extremity edema, chronic venous stasis skin changes Neuro: Patient's of any gross focal deficits Skin: warm and dry, no rashes/lesions/errythema MSK: normal ROM : Edematous scrotum, zhou catheter in place Results & Data Results & Data ([facility]) Vital Signs (Past 12 Hours) Vital Signs Temp Pulse Resp BP Pulse Ox 10/21/20 11:16 36.8 C 98 H 22 132/75 98 10/21/20 07:19 37.1 C 110 H 16 150/94 H 93 (1) Abdominal ascites Ascites type: other type Qualified Code(s): R18.8 - Other ascites
--- NOTE | 2020-10-21 15:10 | Ultrasound Report ---
US duplex portal hepatic veins HISTORY: 60 years-old Male new ascites, r/o PVT cirrhosis with ascites. COMPARISON: CT abdomen and pelvis 10/20/2020 TECHNIQUE: Multiple real-time sonographic images of the hepatic vessels were obtained assessing petey amarjit appearance, color and spectral flow FINDINGS: Patient is habitus limits the study. Cirrhotic liver disease with abdominal ascites. Hepatopedal flow is noted within the patent portal ve in. Hepatic veins and IVC are suboptimally visualized. IMPRESSION: 1. Cirrhotic liver disease with ascites. 2. Hepatopedal flow within the portal vein. ACT 112: Negative or not required by law. The above report was generated using voice recognition software. It may contain grammatical, syntax o r spelling errors. Electronically signed by: Hemal Snider M.D. 10/21/2020 3:09 PM
--- NOTE | 2020-10-21 15:21 | Ultrasound Report ---
ULTRASOUND-GUIDED THERAPEUTIC PARACENTESIS: HISTORY: Ascites. Procedure: The procedure and its risks, benefits and alternatives were discussed with the patient and written informed consent was obtained. Preliminary ultrasound of the abdomen was performed to determ ine a safe needle entry site. The left lower quadrant was prepped and draped in the usual sterile fashion. 1% Lidocaine was used fo r local anesthesia. A paracentesis needle-sheath was inserted into the peritoneal space using ultraso und guidance. The needle was removed and the sheath was connected to tubing and a vacuum suction dioni ce. A total of 4 liters of yellow ascites was aspirated. The sheath was removed and a sterile dressin g applied. The patient tolerated the procedure well and there were no immediate complications. IMPRESSION: Ultrasound-guided therapeutic paracentesis with aspiration of 4 liters of ascites. No additional flui d was obtained as this was the patient's first paracentesis. ACT 112: Negative or not required by law. Electronically signed by: Vasile Danielle M.D. 10/21/2020 3:20 PM
[2020-10-21 15:24] LABS: Albumin Peritoneal Fluid 1.2 g/dl
[2020-10-21 16:02] LABS: Color Urine Orange
[2020-10-21 16:03] LABS: Appearance Urine Slightly Cloudy (Clear); Specific Gravity Urine > 1.035 (1.000-1.030)
[2020-10-21 16:05] LABS: Epithelial Cell Urine 0-5 /lpf (0-5); RBC Urine >30 /hpf (0-4); Total Protein Peritoneal Fluid 2.5 g/dl
[2020-10-21 16:06] LABS: Bacteria Urine Negative (Negative); Mucus Urine Present (None Prsent)
[2020-10-21 16:26] LABS: Appearance Peritoneal Fluid CLEAR; Basophils, Fluid 0 %; Color Peritoneal Fluid YELLOW; Eosinophils, Fluid 0 %; Lymphocytes, Fluid 51 %; Mono,Macrophage,Mesothelial 33 %; Neutrophils, Fluid 16 %; RBC Peritoneal Fluid (A) < 3000 /uL; WBC Peritoneal Fluid (A) 142 /ul (0-300)
[2020-10-21] MEDS: MELATONIN 3 MG TAB PO PRN (22:57)
[2020-10-22] MEDS: MENTHOL-ZINC OXIDE 360 APPLN/120 GM TUBE EXT SCH (07:48)
[2020-10-22] MEDS: FOLIC ACID 1 MG TAB PO SCH (07:48)
[2020-10-22] MEDS: CLINDAMYCIN 300 MG in DEXTROSE 5% 50 ML IV SCH ×3 (07:48→23:36)
[2020-10-22] MEDS: THIAMINE HCL 100 MG TAB PO SCH (07:49)
[2020-10-22] MEDS: NYSTATIN CR 15 GM TUBE EXT SCH ×2 (07:49→20:07)
[2020-10-22] MEDS: ENOXAPARIN INJ 40 MG/0.4 ML SYR SQ SCH (07:49)
[2020-10-22] MEDS: PANTOprazole 40 MG TAB PO SCH (07:49)
[2020-10-22 08:14] LABS: Basophils # (auto) 0.03 K/uL (0-0.2); Basophils % (auto) 0.5 %; Eosinophils # (auto) 0.11 K/uL (0-0.5); Hematocrit (blood only) 40.2 % (42-52); Hemoglobin 13.4 g/dL (14.0-18.0); Immature Granulocytes # (auto) 0.01 K/uL (0.00-0.02); Immature Granulocytes % (auto) 0.2 %; Lymphocytes # (auto) 0.82 K/uL (1.2-3.4); Lymphocytes % (auto) 14.7 %; Mean Corpuscular Hemoglobin 31.6 pg (25-34); Mean Corpuscular Hgb Conc 33.3 g/dL (32-36); Mean Corpuscular Volume 94.8 fL (80-100); Mean Platelet Volume 9.7 fL (7.4-10.4); Monocytes # (auto) 0.63 K/uL (0.11-0.59); Monocytes % (auto) 11.3 %; Neutrophils # (auto) 3.97 K/uL (1.4-6.5); Neutrophils % (auto) 71.3 %; Platelet Count 156 K/uL (130-400); RDW Coefficient of Variation 15.3 % (11.5-14.5); Red Blood Count 4.24 M/uL (4.7-6.1); White Blood Count 5.57 K/uL (4.8-10.8)
[2020-10-22 08:45] LABS: Albumin Level 2.7 gm/dl (3.4-5.0); BUN Creatinine Ratio 24.4 (10-20); Calcium 8.6 mg/dl (8.5-10.1); Creatinine Clr Calc Pharmacy 180.5 ml/min; Est GFR (African American) 127.5; Potassium 3.5 mmol/L (3.5-5.1)
[2020-10-22 08:50] LABS: Albumin Globulin Ratio 0.7 (0.9-2); Bilirubin,Total 1.8 mg/dl (0.2-1); Globulin 3.8 gm/dl (2.5-4.0); Total Protein 6.5 gm/dl (6.4-8.2)
--- NOTE | 2020-10-22 08:57 | Magnetic Resonance Report ---
MR MRCP HISTORY: elevated LFTs, gallstones, r/o choledocholithiasis TECHNIQUE: MRCP of the abdomen was performed without contrast according to standard departmental prot ocol. COMPARISON STUDY: Abdomen and pelvis CT 10/20/2020. FINDINGS: Mild anterior wedging at the L1 vertebral body. This likely represents a chronic compressio n deformity. Large volume ascites has slightly improved. Nodular contour to the liver consistent with cirrhosis. The visualized spleen appears unremarkable. No hydronephrosis within the visualized kidne ys. There are significant motion/respiratory artifact resulting in nondiagnostic evaluation of the ga llbladder, pancreas, and biliary system. There is diffuse body wall edema. IMPRESSION: 1. Nondiagnostic evaluation of the gallbladder, pancreas, and biliary system due to the significant m otion/respiratory artifact. 2. Large volume ascites has slightly improved. 3. Cirrhotic liver is again noted. ACT 112: Negative or not required by law. Electronically signed by: Vasile Danielle M.D. 10/22/2020 8:56 AM
--- NOTE | 2020-10-22 09:17 | Gastroenterology Progress Note ---
Date of Service October 22, 2020 Assessment & Plan (1) Cirrhosis of liver: ETOH cirrhosis with ascites, may have an overlap of NAFLD as well. No SBP. No signs of withdraw or encephalopathy. Gallstones but no convincing evidence of choledocholithiasis and no symptoms typical of that (no post prandial upper abd pain). Long discussion with pt regarding complete, total, alcohol abstinence from this point forward, the remainder of his life. I was gail regarding the risk of from alcholic hepatitis and cirrhosis, explaining the discriminant function score. Pt is motivated to completely abstain from alcohol. Needs dietary consult for low salt diet. Will place order. Will start diuretics today: Furosemide 40/spironolactone 100 daily. Please continue to intermittently follow BMP out to one week after starting diuretics. Continue thiamine/folate supplementation. Our office will call him to arrange OP GI/hepatology f/u for Q 6m imaging/AFP and MELD labs as well as management of diuretics in cirrhosis. He will need an EGD for screening for varices as well which can be set up as an OP. GI will sign off. Please notify us of new/worsening GI/hepatology issues. Admission and Anticipated Discharge Date Admission Date: October 20, 2020 Supervising Physician Co-Signing Physician Notes I have discussed the patient's management with the advanced practitioner. Please refer to the nurse practitioner's note for the documented findings and plan of care. Limited quality MRCP. No biliary dilation on CT scan. LFTs stable. Follow up as OP for Liver cirrhosis management. Recall GI if needed. Subjective 60, male, admitted on 10/20 for SOB/fluid overload CT with new cirrhosis 2 ascites. Also with gallstones and no suggestion of choledocholithiasis but poor quality US and MRCP films. Drinks 6 alc damari/day for years. Temp 37.7 on 10/20. Thus far urine, blood and ascitic fluid cx are (-). 4L paracentesis yesterday. Fluid 142 WBCs, 16% neutrophils. This morning pt tells me that he feels significantly better. Able to breath better and less abd discomfort after paracentesis. Slightly smaller abdominal girth and less peripheral edema on exam today. No symptoms of alcohol withdraw or encephalopathy. Review of Systems Review of Systems: ROS: Gen: + chronic weakness post CVA, general deconditioning. Denies weakness, fevers, weight loss Eyes: No eye redness, or pain, no recent vision changes Resp: + mild SOB - much improved, no cough Cardio: No palpitations/irregular beats, no chest pain GI: Large ascites, no abdominal pain, no nausea/vomiting : Denies pain on urination Skin: No jaundice, itching or new rashes. has chronic lower leg edema and skin redness Physical Exam Constitutional: + ill appearing (chronically), + obese, cooperative, comfortable and + edematous Eyes: PERRL, conjunctivae normal, anicteric sclerae ENMT: external ear and nose normal, oropharynx normal Neck: trachea midline, no thyromegaly Respiratory: normal respiratory effort Auscultation: + wheezes (scattered) Decreased air to bases, no adventitious sounds Cardiovascular: Rate/Rhythm: regular rate and regular rhythm Heart Sounds: no murmur Extremities: + edema (bilat lower let 2+ edema) Gastrointestinal (Abdomen): Inspection/Auscultation: + abdomen distended (with ascites) Percussion/Palpation: abdomen nontender Skin: no jaundice Neurologic: awake; not confused Motor/Sensory: no tremor Psychiatric: A+Ox3, euthymic affect Affect: euthymic affect Lymphatic: no cervical or axillary lymphadenopathy Results & Data ([facility]) Vital Signs (Past 12 Hours) Vital Signs Temp Pulse Pulse Resp BP Pulse Ox Pulse Ox 10/22/20 07:56 37.2 C 91 H 129/79 95 10/22/20 04:20 37.4 C 102 H 20 114/77 91 10/22/20 00:00 95 10/21/20 23:59 108 H 10/21/20 23:00 37.1 C 103 H 20 115/79 92 Laboratory Results WBC 5, Hb 13, Hct 40, Plats 156, Na 135, K 3.5, BUN 14, Cr 0.58. See HPI for ascitic fluid analysis and cultures. Diagnostic Findings CT 10/20: 1. Large volume of ascites 2. No evidence of bowel obstruction. No evidence of free air 3. Hepatic cirrhosis 4. Cholelithiasis Portal Vein US 10/21/20: 1. Cirrhotic liver disease with ascites. 2. Hepatopedal flow within the portal vein. Paracentesis: ltrasound-guided therapeutic paracentesis with aspiration of 4 liters of ascites. No additional fluid was obtained as this was the patient's first paracentesis. MRCP 10/22/20: 1. Nondiagnostic evaluation of the gallbladder, pancreas, and biliary system due to the significant motion/respiratory artifact. 2. Large volume ascites has slightly improved. 3. Cirrhotic liver is again noted.
[2020-10-22] MEDS: SPIRONOLACTONE 100 MG TAB PO SCH (10:16)
[2020-10-22] MEDS: FUROSEMIDE 40 MG TAB PO SCH (10:16)
--- NOTE | 2020-10-22 11:25 | Urology Progress Note ---
Date of Service October 22, 2020 Assessment & Plan (1) Urinary retention: (2) Scrotal rash: 60yo M admitted with volume overload and ascites/abdominal distention secondary to cirrhosis. On admission, patient found to have urinary retention and scrotal rash. -Patient remains afebrile. -Labs reviewed, Wbc and creatinine are stable. -Urine and blood cultures pending -Recommend maintaining zhou catheter until outpatient f/u with urology -Recommend scrotal elevation when sitting/laying flat for scrotal edema -Continue antibiotics and supportive care per primary team -Will arrange outpatient f/u with urology for voiding trial -Thank you for allowing us to participate in the acute care of Mr. Romo. Please reconsult us with additional questions, concerns or changes in patient status. Admission and Anticipated Discharge Date Admission Date: October 20, 2020 Subjective Pt examined at bedside this AM. Awake, resting in bed on arrival. Reports he is feeling better today. Scrotal pain has slightly improved. No fevers or chills. Tolerating diet, no nausea or vomiting Zhou catheter intact/patent, draining dark yellow urine. Denies dysuria. Chart review: Afebrile Wbc 5.57 Hgb 13.4 Cr 0.58 Urine cx- pending On IV Clindamycin 4L paracentesis yesterday Review of Systems Constitutional: as per Subjective / HPI Gastrointestinal: as per Subjective / HPI Genitourinary: + as per Subjective / HPI Physical Exam Constitutional: + obese, cooperative and + edematous Respiratory: normal respiratory effort Cardiovascular: Extremities: + edema (b/l LE 2+) Gastrointestinal (Abdomen): Inspection/Auscultation: + abdomen distended (with ascites) Percussion/Palpation: abdomen nontender Musculoskeletal: Head/Neck/Chest: normocephalic Neurologic: awake; not confused Psychiatric: Orientation: alert and oriented x 3 Genitourinary: + edematous scrotum and + erythematous scrotum Zhou catheter intact Results & Data ([facility]) Vital Signs (Past 12 Hours) Vital Signs Temp Pulse Pulse Resp BP Pulse Ox Pulse Ox 10/22/20 08:00 96 H 10/22/20 07:56 37.2 C 91 H 129/79 95 10/22/20 04:20 37.4 C 102 H 20 114/77 91 10/22/20 00:00 95 10/21/20 23:59 108 H PG Care Time/CCT Total # of Minutes Spent Total Time Spent with Patient: Total time spent is greater than 50% in coordination of care (as documented) at patient's floor/unit and/or counseling patient: Coding Level of Care Code 78185 Subseq Hosp Care Lvl 2 Diagnoses Urinary retention R33.9 Scrotal rash R21
--- NOTE | 2020-10-22 12:44 | Hospitalist Progress Note ---
Date of Service October 22, 2020 Assessment & Plan (1) Cirrhosis of liver: (2) Abdominal ascites: (3) Hyponatremia: Patient is a 60 yo male with what appears to be acute decompensated cirrhosis with volume overload and ascites/abdominal distention. This is likely secondary to history of alcohol abuse. Normal ultrasound revealed cirrhosis. CT abdomen/pelvis was obtained which revealed significant ascites. GI was consulted. Status post paracentesis on 10/21 with 4 L of fluid removed. Studies are pending. MRCP obtained today without any concerning findings. Started on furosemide 40/spironolactone 100 mg daily. Monitor ins and outs. To follow-up with gastroenterology/hepatology as an outpatient. Zhou catheter in place for accurate ins and outs. AST at 32 and ALT at 9. Ammonia 40.5 on admission. LDL of 74. Lipase is not concerning. PREETI and anti-smooth muscle antibodies pending. Huang panel is pending. TTE Echo with EF of 50%. (4) Alcohol abuse: Patient drinks approximately 3 beers & 3-4 shots per day. Continue with CIWA protocol including thiamine/folic acid/multivitamin and Ativan as needed. (5) HTN (hypertension): Stable, patient was on lisinopril prior to admission but had not been taking it for the last 2 months. (6) Scrotal rash: (7) Incontinence: (8) Urinary retention: Patient had urinary retention on admission. Zhou catheter was placed on admission. And was also found to have significant scrotal erythema. Denies any penile discharge. We will continue with IV clindamycin for now. Continue with nystatin powder and Barrier Cream daily. Continue scrotal elevation. Urology is on board. Cultures negative thus far. (9) DVT prophylaxis: SQ Lovenox 40 daily (10) SIRS (systemic inflammatory response syndrome): Blood cultures negative thus far. Admission and Anticipated Discharge Date Admission Date: October 20, 2020 Subjective Patient is doing okay this morning. Reports he feels better. Reports shortness of breath is improved. His primary complaint is of scrotum discomfort. Denies any chest pain. Denies any abdominal pain. Rest of the review of system is negative. Review of Systems Review of Systems: All systems reviewed & are unremarkable except as noted in HPI & below Physical Exam Physical Exam: General: A&Ox3. HENT: NCAT, MMM, EOMI Eyes: PERRLA Neck: Supple, normal range of motion CVS: normal rate and rhythm Resp: b/l crackles appreciated Abdomen: Soft, distended - improved, nontender Extremities: 2+ lower extremity edema, chronic venous stasis skin changes Neuro: Patient's of any gross focal deficits Skin: warm and dry, no rashes/lesions/errythema MSK: normal ROM : Erythematous scrotum, zhou catheter in place Results & Data Results & Data ([facility]) Vital Signs (Past 12 Hours) Vital Signs Temp Pulse Pulse Resp BP Pulse Ox 10/22/20 11:58 37.2 C 94 H 114/66 92 10/22/20 08:00 96 H 10/22/20 07:56 37.2 C 91 H 129/79 95 10/22/20 04:20 37.4 C 102 H 20 114/77 91 (1) Abdominal ascites Ascites type: other type Qualified Code(s): R18.8 - Other ascites
[2020-10-22] MEDS: MELATONIN 3 MG TAB PO PRN (20:05)
[2020-10-23] MEDS ORDERED: ACETAMINOPHEN 325 MG TAB PO PRN (06:41)
[2020-10-23] MEDS ORDERED: oxyCODONE HCL IR 5 MG TAB (IMMEDIATE RELEASE) PO PRN (06:41)
[2020-10-23] MEDS: ENOXAPARIN INJ 40 MG/0.4 ML SYR SQ SCH (08:49)
[2020-10-23] MEDS: SPIRONOLACTONE 100 MG TAB PO SCH (08:49)
[2020-10-23] MEDS: FUROSEMIDE 40 MG TAB PO SCH (08:49)
[2020-10-23] MEDS: PANTOprazole 40 MG TAB PO SCH (08:49)
[2020-10-23] MEDS: FOLIC ACID 1 MG TAB PO SCH (08:49)
[2020-10-23] MEDS: MENTHOL-ZINC OXIDE 360 APPLN/120 GM TUBE EXT SCH (08:50)
[2020-10-23] MEDS: THIAMINE HCL 100 MG TAB PO SCH (08:50)
[2020-10-23] MEDS: NYSTATIN CR 15 GM TUBE EXT SCH ×2 (08:51→20:18)
[2020-10-23] MEDS: CLINDAMYCIN 300 MG in DEXTROSE 5% 50 ML IV SCH ×2 (08:53→15:27)
[2020-10-23 13:56] LABS: Anti Nuclear Antibody Screen POSITIVE (NEGATIVE); Hepatitis A Antibody IgM NON-REACTIVE (NON-REACTIVE); Hepatitis B Core Antibody IgM NON-REACTIVE (NON-REACTIVE); Smooth Muscle Antibody NEGATIVE (NEGATIVE)
--- NOTE | 2020-10-23 18:25 | Hospitalist Progress Note ---
Date of Service October 23, 2020 Assessment & Plan (1) Cirrhosis of liver: Patient is a 60 yo male admitted with acute decompensated cirrhosis with volume overload and ascites/abdominal distention. T hx of jail alcohol abuse /alcoholic liver disease /cirrhosis abdominal ultrasound revealed cirrhosis. CT abdomen/pelvis was obtained which revealed significant ascites. GI was consulted. (2) Abdominal ascites: due to above Status post paracentesis on 10/21 with 4 L of fluid removed. ascitic fluid culture negative growth pt reports improvement of abdominal distention , SOB , orthopnea after procedure started on furosemide 40/spironolactone 100 mg daily (3) Hyponatremia: due to above volume overload with alcoholic liver cirrhosis , ascites Na level improved with diuresis (4) Alcohol abuse: Patient drinks approximately 3 beers & 3-4 shots per day. treated with CIWA protocol including thiamine/folic acid/multivitamin and Ativan as needed. no s/s of ETOH withdrawal pt is counselled for complete abstinence of ETOH (5) HTN (hypertension): Stable, (6) Scrotal rash: (7) Incontinence: (8) Urinary retention: URINARY RETENTION : possible due to severe scrotal edema , in setting of decompensated alcoholic liver disease cont zhou appreciate input from Urology will be discharged on Zhou , clinic follow up with Urology for voiding trial (9) DVT prophylaxis: SQ Lovenox 40 daily (10) SIRS (systemic inflammatory response syndrome): Blood cultures negative thus far. DISPOSITION : will need rehab referral made for [facility] Admission and Anticipated Discharge Date Admission Date: October 20, 2020 Subjective Follow up visit for alcoholic liver disease /ascites /urinary retention : pt reports feeling better , abdominal distention improved after thoracentesis no orthopnea , no [place] no fever or chills no complain of abdominal pain , no nausea /vomiting or diarrhea Review of Systems Review of Systems: All systems reviewed & are unremarkable except as noted in HPI & below Physical Exam Constitutional: WD/WN, vitals as above Eyes: PERRL, conjunctivae normal, anicteric sclerae ENMT: external ear and nose normal, oropharynx normal Neck: trachea midline, no thyromegaly Respiratory: normal respiratory effort; no respiratory distress and no cough Auscultation: no wheezes Cardiovascular: Rate/Rhythm: regular rate and regular rhythm Gastrointestinal (Abdomen): Inspection/Auscultation: + abdomen distended Percussion/Palpation: abdomen soft and + ascites; abdomen nontender Skin: no rashes, warm and dry Neurologic: PERRL, EOMI, accommodation nl, no face palsy, no dysarthria Psychiatric: A+Ox3, euthymic affect Results & Data Results & Data ([facility]) Vital Signs (Past 12 Hours) Vital Signs Temp Pulse Pulse Resp BP Pulse Ox 10/23/20 17:36 37.0 C 82 20 143/87 H 94 10/23/20 15:33 37.0 C 83 18 115/77 99 10/23/20 10:54 36.6 C 95 H 16 114/81 92 10/23/20 08:45 37.2 C 100 H 16 124/83 96 (1) Abdominal ascites Ascites type: other type Qualified Code(s): R18.8 - Other ascites
[2020-10-24] MEDS: CLINDAMYCIN 300 MG in DEXTROSE 5% 50 ML IV SCH ×3 (00:05→15:52)
[2020-10-24] MEDS: FOLIC ACID 1 MG TAB PO SCH (09:16)
[2020-10-24] MEDS: THIAMINE HCL 100 MG TAB PO SCH (09:17)
[2020-10-24] MEDS: PANTOprazole 40 MG TAB PO SCH (09:17)
[2020-10-24] MEDS: FUROSEMIDE 40 MG TAB PO SCH (09:17)
[2020-10-24] MEDS: ENOXAPARIN INJ 40 MG/0.4 ML SYR SQ SCH (09:17)
[2020-10-24] MEDS: MENTHOL-ZINC OXIDE 360 APPLN/120 GM TUBE EXT SCH (09:45)
[2020-10-24] MEDS: SPIRONOLACTONE 100 MG TAB PO SCH (10:22)
[2020-10-24] MEDS: NYSTATIN CR 15 GM TUBE EXT SCH (10:30)
--- NOTE | 2020-10-24 16:06 | Discharge Summary ---
Date of Service October 24, 2020 Admission HPI Per Admitting Provider Patient is a 60 yo male presenting to the ED with complaints of SOB, edema, and abdominal swelling x multiple weeks. He has PMHx including hx of stroke in 2004 with subsequent chronic left sided hemiparesis, HTN, alcoholism, & chronic back pain from hx of vertebral fracture. Patient states that he started to notice incontinence about 1-2 months ago, and then he progressively had worsening SOB, NICOLE, and difficulty ambulating. He had a friend visit him 2 weeks a part, and she felt that his abdomen was severely swollen. She recommended he go to the hospital for evaluation. He notes that he has a chronic cough which is no worse than usual. He smokes 2-3 PPD cigarettes and 2-3 'bowls' per day of marijuana. He drinks approximately 3 beers and 3-4 shots of vodka per day. He has been doing this for years. He states that the shots of vodka are mostly to help him sleep. He has not slept well his entire life. Patient denies appetite changes, chest pain, abdominal pain. He typically does not have problems with incontinence until recently. He unfortunately started to develop a rash on his scrotum the past few days as well because of the incontinence which is painful. He has also had ongoing diarrhea for a few weeks as well. Patient is supposed to be on Lisinopril 20 mg daily for HTN, but he hasn't taken this in "months". Upon presentation to the ED, he appears severely volume overloaded with distended abdomen and edema of B/L LE. He was hypertensive and tachycardic. CXR showed trace right pleural effusion and small right basilar density. COVID- 19 test negative. Liver US showed cirrhosis with fatty changes along with a "small amount of ascites". Labs include: Hyponatremia with sodium of 130 Preserved renal function with Creatinine 0.57. Slightly decreased phosphorus of 2.4, Mag within normal. AST mildly elevated at 41, normal AST, total bilirubin 1.6. Troponin undetectable Albumin low at 2.5 Lipase within norm Alcohol level 18 (elevated). In the ED, patient was given Thiamine, Folate, and Albumin. Principal Diagnosis ALCOHOLIC LIVER DISEASE /CIRRHOSIS ASCITES URINARY RETENTION Discharge Exam Constitutional WD/WN, vitals as above Eyes PERRL, conjunctivae normal, anicteric sclerae ENMT external ear and nose normal, oropharynx normal Neck trachea midline, no thyromegaly Respiratory normal respiratory effort; no respiratory distress and no cough Auscultation: no wheezes Cardiovascular Rate/Rhythm: regular rate and regular rhythm Gastrointestinal (Abdomen) Inspection/Auscultation: + abdomen distended Percussion/Palpation: abdomen soft and + ascites; abdomen nontender Skin no rashes, warm and dry Neurologic PERRL, EOMI, accommodation nl, no face palsy, no dysarthria Psychiatric A+Ox3, euthymic affect Discharge Data Allergies Allergy/AdvReac Type Severity Reaction Status Date / Time latex Allergy Intermediate RASH Verified 10/20/20 13:57 bee venom protein (honey bee) Allergy Unknown CARDIAC Unverified 10/20/20 13:57 SYMPTOMS bupropion Allergy Unknown Verified 10/20/20 13:57 cat dander Allergy Unknown HIVES Verified 10/20/20 13:57 codeine AdvReac Unknown INTOLERANCE Verified 10/20/20 13:57 -INSOMNIA Consultations 10/20/20 14:13 ED Decision to Admit Stat 10/20/20 15:50 Consult Urology Stat 10/20/20 16:59 Consult Case Management - Discharge Planning Routine 10/21/20 08:02 Consult Gastroenterology Routine Ordered Studies 10/20/20 13:34 US liver Stat 10/20/20 16:13 CT abd pelvis IV con only Stat 10/21/20 10:33 US duplex portal hepatic veins Routine 10/21/20 14:00 US paracentesis abd w/image Routine 10/22/20 00:00 MR MRCP Routine Hospital Course (1) Cirrhosis of liver: Patient is a 60 yo male admitted with acute decompensated cirrhosis with volume overload and ascites/abdominal distention. 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 CT abdomen/pelvis was obtained which revealed significant ascites. GI was consulted. GI team had a long discussion with pt regarding complete, total, alcohol abstinence from this point forward, the remainder of his life. ongoing alcohol drink -he will be risking of from alcholic hepatitis and cirrhosis, Pt is motivated to completely abstain from alcohol. Low salt diet ordered for Furosemide 40/spironolactone 100 daily. weekly Labs to follow BMP out to one week after starting diuretics Continue thiamine/folate supplementation. GI office will call him to arrange OP GI/hepatology needs f/u for 6 months liver /abdomen imaging/AFP and MELD labs as well as management of diuretics in cirrhosis. pt will need an EGD for screening for varices -which will be set up as put patient (2) Abdominal ascites: due to above Status post paracentesis on 10/21 with 4 L of fluid removed. ascitic fluid culture negative growth /no evidence of SBP pt reports improvement of abdominal distention , SOB , orthopnea after procedure started on furosemide 40/spironolactone 100 mg daily-as outlined above (3) Hyponatremia: due to above resolved volume overload with alcoholic liver cirrhosis , ascites Na level improved with diuresis (4) Alcohol abuse: Patient drinks approximately 3 beers & 3-4 shots per day. treated with CIWA protocol including thiamine/folic acid/multivitamin and Ativan as needed. no s/s of ETOH withdrawal pt is counselled for complete abstinence of ETOH (5) HTN (hypertension): Stable, (6) Scrotal rash: (7) Incontinence: (8) Urinary retention: URINARY RETENTION : possible due to severe scrotal edema , in setting of decompensated alcoholic liver disease cont yip appreciate input from Urology will be discharged on Yip , clinic follow up with Urology for voiding trial (9) DVT prophylaxis: SQ Lovenox 40 daily (10) SIRS (systemic inflammatory response syndrome): Blood cultures negative thus far. DISPOSITION : accepted at [facility] for acute rehab stable to be discharged to Rehab today Total Time Total Time Spent Total Time Spent (In Minutes): 40 mins Total Time Includes: Examination of the Patient, Discharge Planning and Medication Reconciliation Discharge Plan Discharge Items Patient Disposition: Transfer Inpatient Rehab Fac Reason For Visit: CIRRHOSIS Discharge Diagnosis: ALCOHOLIC LIVER DISEASE /CIRRHOSIS ASCITES URINARY RETENTION Activity: As commented below Activity Comment: CONTINUE PHYSICAL THERAPY /OCCUPATIONAL THERAPY AT REHAB Non-emergency contact: Primary Care Provider Call non-emergency contact if: you have any medication questions Follow-up/Referrals: Everett Kaur DO [Physician] - (FOLLOW UP IN UROLOGY CLINIC IN 1-2 WEEKS , KEEP YIP CATHETER TILL CLINIC VISIT ) Abner Singh MD [Primary Care Provider] - Milton Pedroza MD [Hospitalist] - (GASTROENTEROLOGY FOLLOW UP IN 2-3 WEEKS ) Diet: Low Sodium (2gm) Ambulatory Orders: Basic Metabolic Panel (Routine) Timeframe: 1 Week Location: Determined by Patient Ordered By: Jenn Seth Attending Provider Instructions: FOLLOW UP WITH FAMILY PHYSICIAN AFTER DISCHARGED FROM HOSPITAL CONTINUE YIP CATHETER TILL EVALUATED BY UROLOGY IN CLINIC FOLLOW UP WITH GASTROENTEROLOGY FOR LIVER DISEASE NEED COMPLETE ABSTINENCE FROM ALCOHOL FOR REST OF YOU LIFE YOU ALREADY DEVELOPED ADVANCED LIVER DAMAGE DUE TO ALCOHOL , CONTINUE TO DRINK - INCREASES RISK OF FROM DO NOT TAKE HIGH DOSE ASPIRIN , NAPROXEN , MOTRIN ,ALEVE , IBUPROFEN -INCREASE RISK OF BLEEDING IN STOMACH TYLENOL NEEDED CAN BE UTILIZED FOR PAIN OR FEVER , LIMIT TYLENOL INTAKE LESS THAN 2 GRAM ( 500 MG TABLETS , CAN TAKE 4 TABLETS A DAY ) TAKING MORE THAN THAT WILL LEAD TO LIVER FAILURE /DECOMPENSATION LAB WORK : BASIC METABOLIC PANEL IN A WEEK Pending Studies at Discharge: No Stand-Alone Forms: My [facility] Skilled Items Patient informed of condition?: Yes DNR: No Discharge Level of Care: Acute rehab Communicable Disease: No Discharge Prognosis: Stable Lines: None Urinary Catheter: Yes Medications and DC Order Prescriptions: New furosemide 40 mg Tablet 40 mg PO QAM 30 Days Qty: 0 RF: 0 polyethylene glycol 3350 [Miralax] 17 gram Powder In Packet 17 g PO DAILY PRN30 Days Qty: 0 RF: 0 spironolactone 100 mg Tablet 100 mg PO QAM 30 Days Qty: 0 RF: 0 thiamine HCl (vitamin B1) [Vitamin B-1] 100 mg Tablet 100 mg PO QAM 30 Days Qty: 0 RF: 0 melatonin 3 mg Tablet 3 mg PO HS PRN30 Days Qty: 0 RF: 0 folic acid 1 mg Tablet 1 mg PO QAM 30 Days Qty: 0 RF: 0 Changed omeprazole 20 mg Tablet,Delayed Release (Dr/Ec) 40 mg PO DAILY Qty: 0 RF: 0 Discontinued naproxen sodium [Aleve] 220 mg Capsule 440 mg PO Q12 PRN (Reason: Pain) RF: 0 Discharge Orders: Discharge Order (Routine); Ordered 10/24/20 Ordered By: Jenn Nolan/Other Patient Handouts: Tips for Using Less Salt, Low-Salt Choices, Low Salt Diet Dc Admission Data Admit Date/Time: 10/20/20 15:06 Attending Provider: Jenn Christiansen Admit Provider: Tatiana Peñaloza Primary Care Provider: Abner Singh Other Providers: [facility] ; Tatiana Peñaloza ; Everett Kaur ; Milton Pedroza
[2020-10-25 10:21] LABS: ANA Pattern Cytoplasmic; ANA Titer 1:40 titer
== END 2020-10-24 16:25 | DRG 433 ==
LOC: ED 12:49 → SUATTDRO 15:06 → 2S 15:06 → 3N 10-23 17:51

== ENCOUNTER 2020-12-02 06:49 | Inpatient (IN) ==
[2020-12-02] MEDS ORDERED: ONDANSETRON INJ 2 MG/ML 2 ML VIAL IV STA (07:11)
[2020-12-02] MEDS ORDERED: SODIUM CHLORIDE 0.9% 500 ML IV SCH (07:15)
--- NOTE | 2020-12-02 07:20 | Emergency Department Note ---
Impression & Plan Acute hyponatremia, Weakness, Fracture of right radius, Failure of outpatient treatment ED Provider Note NAME: KRISTIAN MEYER AGE: 60 SEX: M : 1960 ARRIVES VIA: Ambulance INFORMANT: [Patient][nurses] ED PROVIDER(S): [Chapito Del Angel MD] CHIEF COMPLAINT: Weakness, recent fall HISTORY OF PRESENT ILLNESS: Patient is a 60-year-old male presents to the ED by EMS. The patient was in our ED on November 30, 2 days ago. The patient had fallen and suffered a distal radius fracture. His ammonia level was elevated at over 50. Hospitalization was felt warranted as he only has the ability to use his right side, his left side is basically flaccid and unusable from a prior stroke. The patient decided to go home. Since being home, he has found he is unable to care for himself. He states that in addition to everything that he is going through, his lift assist device broke. He now has a try to use his right arm to do his daily activities and the arm is in a splint. There has been no new fall. He has had no increased cough or shortness of breath. No vomiting. No diarrhea. He does state that he has had some issues with constipation over the last couple days but did have a small bowel movement this morning. Patient states he has noticed an itchy rash in the groin, he was using some ointment at home but since he has his arm in a splint, he has not been able to apply medication. He also complains of some upper back pain, this is a chronic and ongoing issue. He is asking for something for pain. Typically, he uses Tylenol. Of note, the patient quit drinking alcohol in mid October, a month and a half ago. REVIEW OF SYSTEMS: See HPI for pertinent positives and negatives. A total of ten systems were reviewed and were otherwise negative. PMHx/PSHx: See Below SOCIAL HISTORY: See Below. PHYSICAL EXAM: GENERAL: Patient is in no acute distress. Somewhat disheveled appearing. HEENT: No acute trauma, normocephalic atraumatic, mucous membranes moist, no nasal congestion, no scleral icterus. NECK: No stridor, no adenopathy, no meningismus, trachea is midline. LUNGS: Clear to auscultation bilaterally, no wheeze, no rhonchi, breath sounds equal. HEART: Mildly tachycardic, regular rhythm, no murmurs. ABDOMEN: Soft, nontender, bowel sounds positive, no hernias, no peritonitis. EXTREMITIES: No cyanosis. No significant edema. There is a splint on the right wrist/forearm. NEUROLOGIC: Oriented x 3. Patient currently has no movement of the left arm and minimal movement of the left leg. Strong right arm and right leg. He is awake and alert, no speech slur. SKIN: No rash, no jaundice, no diaphoresis. Groin: The patient has a red, raised, somewhat patchy rash noted primarily in the left groin crease. This appears yeastlike. DIFFERENTIAL DIAGNOSIS: Infection, dehydration, metabolic abnormality, hypo/hyperglycemia, electrolyte disturbance, anemia, hypoxia, cardiac sources, intracerebral event, toxicologic issues, stroke, TIA, as well as other pathologies. EMERGENCY DEPARTMENT COURSE/PROCEDURES: ECG: Indication was weakness. The ECG shows a sinus tachycardia with a rate of 107. The QTc is 453. There is no ST elevation, no PVCs. When compared to an ECG from 30 November 2020, there is no significant change. Continuous Cardiac Monitoring: An order was placed for continuous cardiac monitoring. The monitor shows a rate of 88 with normal sinus rhythm. MEDICAL DECISION MAKING: There is no leukocytosis or concerning anemia. There is a normal platelet count. Sodium is low at 129, this is a drop for the patient when looking back at his older testing. No kidney failure. No concerning liver enzyme elevation. Patient appears to be in a euthyroid state. Ammonia level is not elevated. ECG shows a sinus tachycardia, no acute ischemia. Cardiac enzyme testing x1 is not consistent with acute cardiac injury. Urinalysis does not show infection. Covid testing is negative. Chest some does not show pneumonia or mediastinal widening. The patient presents with weakness. He had fallen a few days ago. He is having a hard time caring for himself with the splint on his right arm and the nonfunctioning left arm. The patient was given IV saline for hydration, he was given a total of 1 L. He was given IV Zofran for nausea, IV morphine for pain. The patient is in need of a hospital stay. He may eventually require rehab. For now, with the hyponatremia, he requires a medical admission. I spoke to the patient and case management. The on-call hospitalist was consulted. Past Med/Surg History Medical History Cirrhosis of liver Hemiplegia, post-stroke "L sided weakness s/p stroke" History of prolactinoma HTN (hypertension) Hx of fracture of rib Lumbar compression fracture Surgical History History of sinus surgery History of total knee arthroplasty Family History Father Diabetes Heart disease CKD (chronic kidney disease) Other Family history non-contributory Social History Smoking Status: Current every day smoker Tobacco Type: Cigarettes packs per day: 2.5; Cigarettes Per Day: 2-3PPD; Hx Alcohol Use: No Hx Substance Use: Yes Prescribed Medications: Marijuana Last Used Substance: Days (ago) Preferred Language: Citizen Of [place] Communication Ability: Effective Bilingual Teacher Assistant Required: No Beliefs That Will Affect Care: None marital status: Current Living Situation: Alone current occupational status: disabled Feels Safe at Home: Yes Assistive Devices: Cane and Special Shoe Allergies Allergies Allergy/AdvReac Type Severity Reaction Status Date / Time latex Allergy Intermediate RASH Verified 12/02/20 07:07 bee venom protein (honey bee) Allergy Unknown CARDIAC Verified 12/02/20 07:07 SYMPTOMS bupropion Allergy Unknown Hives Verified 12/02/20 07:07 cat dander Allergy Unknown HIVES Verified 12/02/20 07:07 codeine AdvReac Unknown INTOLERANCE Verified 12/02/20 07:07 -INSOMNIA Home Meds Home Medications Medication Instructions Recorded Confirmed acetaminophen [Tylenol] 325 mg PO QID PRN 11/19/20 12/02/20 melatonin 3 mg PO HS PRN 11/20/20 12/02/20 cholecalciferol (vitamin D3) 1,000 mcg PO DAILY 11/30/20 12/02/20 [Vitamin D3] docusate sodium [Colace] 100 mg PO BID 11/30/20 12/02/20 furosemide See Rx Instructions .ROUTE .COMPLEX 11/30/20 12/02/20 spironolactone See Rx Instructions .ROUTE .COMPLEX 11/30/20 12/02/20 thiamine HCl (vitamin B1) [Vitamin 100 mg PO DAILY 11/30/20 12/02/20 B-1] Previous Rx's Medication Instructions Recorded omeprazole 40 mg PO DAILY #0 tab 10/24/20 Results & Data (ED) Vital Signs Vital Signs - 24 hr 12/02/20 07:00 12/02/20 07:30 12/02/20 08:00 Temperature 36.7 C Temperature Source Oral Pulse Rate 88 Pulse Rate [Apical] 106 H Pulse Rhythm [Apical] Regular Pulse Strength [Apical] Normal Respiratory Rate 18 24 Respiratory Effort / Characteristics Non-Labored Spontaneous Non-Labored Respiratory Depth Normal Normal Respiratory Pattern Regular Regular Blood Pressure 122/89 Blood Pressure [Left Arm] 122/97 Blood Pressure Mean 100 Blood Pressure Mean [Left Arm] 105 Blood Pressure Position Semi-fowlers Blood Pressure Position [Left Arm] Sitting Pulse Oximetry 96 94 94 Oxygen Delivery Method Room Air Room Air Room Air Sepsis Recent Fever Within 48 Hours No Sepsis New/Unexplained Change in Mental Status N/A Sepsis Action Taken by Nursing No Action Required 12/02/20 08:30 Temperature Temperature Source Pulse Rate Pulse Rate [Apical] 81 Pulse Rhythm [Apical] Regular Pulse Strength [Apical] Normal Respiratory Rate 24 Respiratory Effort / Characteristics Non-Labored Spontaneous Respiratory Depth Normal Respiratory Pattern Regular Blood Pressure Blood Pressure [Left Arm] 118/85 Blood Pressure Mean Blood Pressure Mean [Left Arm] 96 Blood Pressure Position Blood Pressure Position [Left Arm] Sitting Pulse Oximetry 94 Oxygen Delivery Method Room Air Sepsis Recent Fever Within 48 Hours Sepsis New/Unexplained Change in Mental Status Sepsis Action Taken by Snf Medications Current Medication List: was personally reviewed by me Laboratory Data Attestation: I reviewed the patient's lab results. Result diagrams: 12/02/20 07:40 12/02/20 12:59 Lab Results 12/02/20 12/02/20 12/02/20 Range/Units 07:40 07:40 07:40 WBC 8.68 (4.8-10.8) K/uL RBC 4.65 L (4.7-6.1) M/uL Hgb 14.9 (14.0-18.0) g/dL Hct 42.0 (42-52) % MCV 90.3 (80-100) fL MCH 32.0 (25-34) pg MCHC 35.5 (32-36) g/dL RDW Std Deviation 46.2 (36.4-46.3) fL RDW Coeff of Zachary 14.1 (11.5-14.5) % Plt Count 284 (130-400) K/uL MPV 9.3 (7.4-10.4) fL Immature Gran % (Auto) 0.5 % Neut % (Auto) 73.1 % Lymph % (Auto) 14.1 % [place] % (Auto) 10.3 % Eos % (Auto) 1.5 % Baso % (Auto) 0.5 % Neut # (Auto) 6.36 (1.4-6.5) K/uL Lymph # (Auto) 1.22 (1.2-3.4) K/uL [place] # (Auto) 0.89 H (0.11-0.59) K/uL Eos # (Auto) 0.13 (0-0.5) K/uL Baso # (Auto) 0.04 (0-0.2) K/uL Immature Gran # (Auto) 0.04 H (0.00-0.02) K/uL Sodium 129 L (136-145) mmol/L Potassium 5.3 H (3.5-5.1) mmol/L Chloride 94 L (98-107) mmol/L Carbon Dioxide 23 (21-32) mmol/L Anion Gap 12.0 H (3-11) BUN 18 (7-18) mg/dl Creatinine 0.88 (0.6-1.4) mg/dl Est Cr Clr Drug Dosing 102.8 ml/min Est GFR ( Amer) 107.5 Est GFR (Non-Af Amer) 92.7 BUN/Creatinine Ratio 20.5 H (10-20) Glucose 101 H (70-99) mg/dl Calcium 10.0 (8.5-10.1) mg/dl Magnesium 2.2 (1.8-2.4) mg/dl Total Bilirubin 0.9 (0.2-1) mg/dl AST 32 (15-37) U/L ALT 12 (12-78) U/L Alkaline Phosphatase 135 H (45-117) U/L Ammonia (11-32) umol/L Troponin I < 0.015 (0-0.045) ng/ml Total Protein 9.2 H (6.4-8.2) gm/dl Albumin 3.4 (3.4-5.0) gm/dl Globulin 5.8 H (2.5-4.0) gm/dl Albumin/Globulin Ratio 0.6 L (0.9-2) TSH 1.620 (0.300-4.500) uIu/ml Specimen Hemolysis Urine Color Urine Appearance (Clear) Urine pH (4.5-7.5) Ur Specific [place] (1.000-1.030) Urine Protein (Negative) Urine Glucose (UA) (Negative) Urine Ketones (Negative) Urine Blood (Negative) Urine Nitrite (Negative) Urine Bilirubin (Negative) Urine Urobilinogen (Negative) Ur Leukocyte Esterase (Negative) COVID-19 Eval Order SARS-CoV-2, RNA, NAAT (NEGATIVE) 12/02/20 12/02/20 12/02/20 Range/Units 07:58 07:58 08:57 WBC (4.8-10.8) K/uL RBC (4.7-6.1) M/uL Hgb (14.0-18.0) g/dL Hct (42-52) % MCV (80-100) fL MCH (25-34) pg MCHC (32-36) g/dL RDW Std Deviation (36.4-46.3) fL RDW Coeff of Zachary (11.5-14.5) % Plt Count (130-400) K/uL MPV (7.4-10.4) fL Immature Gran % (Auto) % Neut % (Auto) % Lymph % (Auto) % [place] % (Auto) % Eos % (Auto) % Baso % (Auto) % Neut # (Auto) (1.4-6.5) K/uL Lymph # (Auto) (1.2-3.4) K/uL [place] # (Auto) (0.11-0.59) K/uL Eos # (Auto) (0-0.5) K/uL Baso # (Auto) (0-0.2) K/uL Immature Gran # (Auto) (0.00-0.02) K/uL Sodium (136-145) mmol/L Potassium (3.5-5.1) mmol/L Chloride (98-107) mmol/L Carbon Dioxide (21-32) mmol/L Anion Gap (3-11) BUN (7-18) mg/dl Creatinine (0.6-1.4) mg/dl Est Cr Clr Drug Dosing ml/min Est GFR ( Amer) Est GFR (Non-Af Amer) BUN/Creatinine Ratio (10-20) Glucose (70-99) mg/dl Calcium (8.5-10.1) mg/dl Magnesium (1.8-2.4) mg/dl Total Bilirubin (0.2-1) mg/dl AST (15-37) U/L ALT (12-78) U/L Alkaline Phosphatase (45-117) U/L Ammonia (11-32) umol/L Troponin I (0-0.045) ng/ml Total Protein (6.4-8.2) gm/dl Albumin (3.4-5.0) gm/dl Globulin (2.5-4.0) gm/dl Albumin/Globulin Ratio (0.9-2) TSH (0.300-4.500) uIu/ml Specimen Hemolysis Urine Color Yellow Urine Appearance Clear (Clear) Urine pH 7.0 (4.5-7.5) Ur Specific [place] 1.007 (1.000-1.030) Urine Protein Negative (Negative) Urine Glucose (UA) Negative (Negative) Urine Ketones Negative (Negative) Urine Blood Negative (Negative) Urine Nitrite Negative (Negative) Urine Bilirubin Negative (Negative) Urine Urobilinogen Negative (Negative) Ur Leukocyte Esterase Negative (Negative) COVID-19 Eval Order Covid19 IDNow [facility] SARS-CoV-2, RNA, NAAT NEGATIVE (NEGATIVE) 12/02/20 Range/Units 09:06 WBC (4.8-10.8) K/uL RBC (4.7-6.1) M/uL Hgb (14.0-18.0) g/dL Hct (42-52) % MCV (80-100) fL MCH (25-34) pg MCHC (32-36) g/dL RDW Std Deviation (36.4-46.3) fL RDW Coeff of Zachary (11.5-14.5) % Plt Count (130-400) K/uL MPV (7.4-10.4) fL Immature Gran % (Auto) % Neut % (Auto) % Lymph % (Auto) % [place] % (Auto) % Eos % (Auto) % Baso % (Auto) % Neut # (Auto) (1.4-6.5) K/uL Lymph # (Auto) (1.2-3.4) K/uL [place] # (Auto) (0.11-0.59) K/uL Eos # (Auto) (0-0.5) K/uL Baso # (Auto) (0-0.2) K/uL Immature Gran # (Auto) (0.00-0.02) K/uL Sodium (136-145) mmol/L Potassium (3.5-5.1) mmol/L Chloride (98-107) mmol/L Carbon Dioxide (21-32) mmol/L Anion Gap (3-11) BUN (7-18) mg/dl Creatinine (0.6-1.4) mg/dl Est Cr Clr Drug Dosing ml/min Est GFR ( Amer) Est GFR (Non-Af Amer) BUN/Creatinine Ratio (10-20) Glucose (70-99) mg/dl Calcium (8.5-10.1) mg/dl Magnesium (1.8-2.4) mg/dl Total Bilirubin (0.2-1) mg/dl AST (15-37) U/L ALT (12-78) U/L Alkaline Phosphatase (45-117) U/L Ammonia 25.0 (11-32) umol/L Troponin I (0-0.045) ng/ml Total Protein (6.4-8.2) gm/dl Albumin (3.4-5.0) gm/dl Globulin (2.5-4.0) gm/dl Albumin/Globulin Ratio (0.9-2) TSH (0.300-4.500) uIu/ml Specimen Hemolysis Urine Color Urine Appearance (Clear) Urine pH (4.5-7.5) Ur Specific [place] (1.000-1.030) Urine Protein (Negative) Urine Glucose (UA) (Negative) Urine Ketones (Negative) Urine Blood (Negative) Urine Nitrite (Negative) Urine Bilirubin (Negative) Urine Urobilinogen (Negative) Ur Leukocyte Esterase (Negative) COVID-19 Eval Order SARS-CoV-2, RNA, NAAT (NEGATIVE) Administered Medications Enoxaparin Sodium (Enoxaparin Inj 40 Mg/0.4 Ml Syr) 40 mg SQ DAILY DONN Stop: 01/01/21 11:44 Last Admin: 12/02/20 12:45 Dose: 40 mg Documented by: [id number] Discontinued Medications Sodium Chloride (Nss) 500 mls @ 999 mls/hr IV .Q31M DONN Stop: 12/02/20 07:45 Last Infusion: 12/02/20 08:09 Dose: 0 mls/hr Documented by: [id number] Admin: 12/02/20 07:39 Dose: 999 mls/hr Documented by: [id number] Sodium Chloride (Nss 1000ml) 500 mls @ 999 mls/hr IV .Q31M ONE Stop: 12/02/20 09:26 Last Infusion: 12/02/20 11:29 Dose: 0 mls/hr Documented by: [id number] Admin: 12/02/20 09:23 Dose: 999 mls/hr Documented by: [id number] Morphine Sulfate (Morphine Sulfate 2 Mg/Ml Carp) 2 mg IV Q20M PRN PRN Reason: Pain Stop: 12/16/20 07:10 Last Admin: 12/02/20 09:23 Dose: 2 mg Documented by: [id number] Admin: 12/02/20 07:39 Dose: 2 mg Documented by: [id number] Ondansetron HCl (Ondansetron Inj 2 Mg/Ml 2 Ml Vial) 4 mg IV NOW STA Stop: 12/02/20 07:12 Last Admin: 12/02/20 07:39 Dose: 4 mg Documented by: [id number] Imaging Data Radiologist's Impression: XR chest 1V portable CLINICAL HISTORY: weakness COMPARISON STUDY: 11/30/2020 FINDINGS: The cardiac and mediastinal contours are normal. There is no evidence of focal pulmonary consolidation. There is no evidence of failure. No pleural effusions are visualized.[There are old left-sided rib deformities. IMPRESSION: No active disease in the chest. Discharge Plan Visit Data Chief Complaint: Fall ED Provider: Chapito Del Angel Discharge Problem: Acute hyponatremia, Weakness, Fracture of right radius, Failure of outpatient treatment Patient Disposition: Admitted As Inpatient Condition: Fair Discharge Instructions Interventions: ED Discharge Assessment Last Done: 12/02/20 10:23 Discharge Problem: Fracture of right radius Qualifiers: Encounter type: subsequent encounter Radius location: distal Fracture type: joe sed Fracture morphology: other fracture Fracture healing: with routine healing Qualified Code(s): P27.519Y - Other fractures of lower end of right radius, subsequent encounter for closed fracture with routine healing
--- NOTE | 2020-12-02 07:37 | XRay Report ---
XR chest 1V portable CLINICAL HISTORY: weakness COMPARISON STUDY: 11/30/2020 FINDINGS: The cardiac and mediastinal contours are normal. There is no evidence of focal pulmonary co nsolidation. There is no evidence of failure. No pleural effusions are visualized.[There are old left -sided rib deformities. IMPRESSION: No active disease in the chest. ACT 112: Negative or not required by law. Electronically signed by: Migel Chang M.D. 12/02/2020 7:35 AM
[2020-12-02] MEDS: MoRPHine SULFATE 2 MG/ML CARP IV PRN ×2 (07:39→09:23)
[2020-12-02 07:58] LABS: Basophils # (auto) 0.04 K/uL (0-0.2); Basophils % (auto) 0.5 %; Eosinophils # (auto) 0.13 K/uL (0-0.5); Eosinophils % (auto) 1.5 %; Hemoglobin 14.9 g/dL (14.0-18.0); Immature Granulocytes # (auto) 0.04 K/uL (0.00-0.02); Immature Granulocytes % (auto) 0.5 %; Lymphocytes # (auto) 1.22 K/uL (1.2-3.4); Lymphocytes % (auto) 14.1 %; Mean Corpuscular Hgb Conc 35.5 g/dL (32-36); Mean Corpuscular Volume 90.3 fL (80-100); Mean Platelet Volume 9.3 fL (7.4-10.4); Monocytes # (auto) 0.89 K/uL (0.11-0.59); Monocytes % (auto) 10.3 %; Neutrophils # (auto) 6.36 K/uL (1.4-6.5); Neutrophils % (auto) 73.1 %; Platelet Count 284 K/uL (130-400); RDW Coefficient of Variation 14.1 % (11.5-14.5); RDW Standard Deviation 46.2 fL (36.4-46.3); Red Blood Count 4.65 M/uL (4.7-6.1); White Blood Count 8.68 K/uL (4.8-10.8)
[2020-12-02 08:29] LABS: Alanine Aminotransferase 12 U/L (12-78); Albumin Globulin Ratio 0.6 (0.9-2); Albumin Level 3.4 gm/dl (3.4-5.0); Alkaline Phosphatase 135 U/L (45-117); Aspartate Aminotransferase 32 U/L (15-37); BUN Creatinine Ratio 20.5 (10-20); Bilirubin,Total 0.9 mg/dl (0.2-1); Blood Urea Nitrogen 18 mg/dl (7-18); Carbon Dioxide 23 mmol/L (21-32); Chloride 94 mmol/L (98-107); Creatinine Clr Calc Pharmacy 102.8 ml/min; Est GFR (African American) 107.5; Est GFR (Non-African American) 92.7; Globulin 5.8 gm/dl (2.5-4.0); Glucose 101 mg/dl (70-99); Magnesium 2.2 mg/dl (1.8-2.4); Potassium 5.3 mmol/L (3.5-5.1); Sodium 129 mmol/L (136-145); Total Protein 9.2 gm/dl (6.4-8.2); Troponin I < 0.015 ng/ml (0-0.045)
[2020-12-02] MEDS ORDERED: SODIUM CHLORIDE 0.9% 1000ML 500 ML IV ONE (08:56)
[2020-12-02 09:08] LABS: Appearance Urine Clear (Clear); Bilirubin Urine Negative (Negative); Blood Urine Negative (Negative); Color Urine Yellow; Glucose Urine UA Negative (Negative); Ketones Urine Negative (Negative); Leukocyte Esterase Urine Negative (Negative); Nitrite Urine Negative (Negative); Protein Urine Negative (Negative); Specific Gravity Urine 1.007 (1.000-1.030); Urobilinogen Urine Negative (Negative)
--- NOTE | 2020-12-02 09:47 | History & Physical Report ---
Date of Service December 02, 2020 Assessment & Plan (1) Hyponatremia: no reason to suspect dehydration more likely he is drinking too much free water, reports 5-6 32oz bottles of ice water a day, says he cannot get enough really needs a fluid restriction at home might be difficult to achieve as he says he has a lot of thirst already got two liters of NSS in the ED, will repeat BMP at noon and in the morning provide sodium chloride 1gm daily (2) Hyperkalemia: hold spironolactone repeat BMP at noon (3) Abdominal ascites: scheduled for outpatient paracentesis tomorrow will try to get this done while here, he says he gets it every two weeks, ordered by Allan ROSE (4) Alcoholic cirrhosis of liver: has issues with ascites, high ammonia levels (5) Buckle fracture of right wrist: just happened a few days ago, typically would not be a problem however, he has left sided hemiparesis from prior stroke difficult time maneuvering at home and not putting too much weight/pressure on wrist will consult PT/OT (6) Hemiplegia, post-stroke: happened in 2005 he has a lift chair that is broken temporarily he normally lives by himself (7) HTN (hypertension): History of Present Illness Chief Complaint: I was too weak to be at home Primary Care Provider: NO PCP 60 yo male with history of alcoholic cirrhosis, stroke in 2005 causing left sided paraplegia and recent fall at home causing fracture of right wrist, presented to the ED this morning due to ongoing weakness and inability to care for himself at home. He fell a few days ago at home and suffered the fracture. It was recommended that he stay in the hospital for treatment and rehab. At home he lives by himself, uses a lift chair to help him get up. He has some home nursing visits. He refused to stay in the hospital. He says that the battery for the remote for his chair is not working and he fell to the floor, could not get up. In the ED labs showed a sodium of 129 and a slightly elevated potassium. He says he drinks ice water all the time, likely too much, claims he drinks 5-6 vincent jars and each jar he claims is 32 ounces. I explained that this is too much water, especially for someone with cirrhosis. He says he follows a low sodium diet. He says he has been following with Allan ROSE, supposed to see Callie KELLY today and supposed to get a therapeutic paracentesis on 12/03/20. He is agreeable to staying in the hospital, admits he cannot get around his home right now with his right wrist fracture. He denies fever/chills, chest pain, dyspnea, cough, nausea/vomiting. Admits to some hard stools recently. No edema in the legs. Has some pain in right wrist. Has his baseline left sided weakness. He says he has not had a drink of alcohol since November 18 and he is very proud of this. Allergies Allergy/AdvReac Type Severity Reaction Status Date / Time latex Allergy Intermediate RASH Verified 12/02/20 07:07 bee venom protein (honey bee) Allergy Unknown CARDIAC Verified 12/02/20 07:07 SYMPTOMS bupropion Allergy Unknown Hives Verified 12/02/20 07:07 cat dander Allergy Unknown HIVES Verified 12/02/20 07:07 codeine AdvReac Unknown INTOLERANCE Verified 12/02/20 07:07 -INSOMNIA Home Medications Medication Instructions Recorded Confirmed Type omeprazole 40 mg PO DAILY #0 tab 10/24/20 12/02/20 Rx acetaminophen [Tylenol] 325 mg PO QID PRN 11/19/20 12/02/20 History melatonin 3 mg PO HS PRN 11/20/20 12/02/20 History cholecalciferol (vitamin D3) 1,000 mcg PO DAILY 11/30/20 12/02/20 History [Vitamin D3] docusate sodium [Colace] 100 mg PO BID 11/30/20 12/02/20 History furosemide See Rx Instructions .ROUTE .COMPLEX 11/30/20 12/02/20 History spironolactone See Rx Instructions .ROUTE .COMPLEX 11/30/20 12/02/20 History thiamine HCl (vitamin B1) [Vitamin 100 mg PO DAILY 11/30/20 12/02/20 History B-1] Past Med/Surg History Medical History Cirrhosis of liver Hemiplegia, post-stroke "L sided weakness s/p stroke" History of prolactinoma HTN (hypertension) Hx of fracture of rib Lumbar compression fracture Surgical History History of sinus surgery History of total knee arthroplasty Family History Father Diabetes Heart disease CKD (chronic kidney disease) Other Family history non-contributory Social History Smoking Status: Current every day smoker Tobacco Type: Cigarettes packs per day: 2.5; Cigarettes Per Day: 2-3PPD; Second Hand Exposure: Yes; Do You Dip or Chew Tobacco: No; Tobacco Cessation Education Requested by Patient: No Hx Alcohol Use: Yes (none since 11/19) Alcohol type: beer and hard liquor Alcohol Intake Frequency Comment: 7 drinks per day. 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 Beliefs That Will Affect Care: None marital status: Current Living Situation: Alone current occupational status: disabled Other Information That Helps Us Care for You: No Feels Safe at Home: Yes Safety Concerns: Feels Safe At This Time Assistive Devices: Cane and Glasses Review of Systems Review of Systems: All systems reviewed & are unremarkable except as noted in HPI & below Constitutional: + fatigue and + weakness; no fever Respiratory: no cough and no dyspnea Cardiovascular: no chest pain, no palpitations, no syncope and no edema Gastrointestinal: + constipation; no abdominal pain, no nausea, no vomiting and no diarrhea/loose stools Genitourinary: no dysuria, no difficulty urinating and no urinary hesitancy Musculoskeletal: + joint pain (right wrist) and + limited range of motion Neurologic: + gait abnormality, + unsteadiness and + paralysis (left sided, prior stroke); no syncope, no headache(s) and no confusion Physical Exam Constitutional: WD/WN, vitals as above + disheveled, cooperative and comfortable; no acute distress Eyes: PERRL, conjunctivae normal, anicteric sclerae ENMT: external ear and nose normal, oropharynx normal Neck: trachea midline, no thyromegaly Respiratory: normal respiratory effort, lungs clear to auscultation Cardiovascular: RRR, no murmur, no edema Gastrointestinal (Abdomen): normal bowel sounds, soft, nontender, no hepatosplenomegaly Percussion/Palpation: + ascites Musculoskeletal: Head/Neck/Chest: normocephalic, head atraumatic and neck supple Extremities: + abnormal strength (left sided paresis); + extremities a bnormal to inspection (right wrist in splint) Skin: no rashes, warm and dry Neurologic: patellar DTR's 2+ bilat, sensation intact and PERRL, EOMI, accommodation nl, no face palsy, no dysarthria Psychiatric: A+Ox3, euthymic affect Lymphatic: no cervical or axillary lymphadenopathy Results & Data Results & Data ([facility]) Vital Signs (Past 12 Hours) Vital Signs Temp Pulse Pulse Resp BP BP Pulse Ox 12/02/20 08:30 81 24 118/85 94 12/02/20 08:00 94 12/02/20 07:30 106 H 24 122/97 94 12/02/20 07:00 36.7 C 88 18 122/89 96 Laboratory Results Laboratory Results - last 24 hr 12/02/20 12/02/20 12/02/20 07:40 07:40 07:40 WBC 8.68 RBC 4.65 L Hgb 14.9 Hct 42.0 MCV 90.3 MCH 32.0 MCHC 35.5 RDW Std Deviation 46.2 RDW Coeff of Zcahary 14.1 Plt Count 284 MPV 9.3 Immature Gran % (Auto) 0.5 Neut % (Auto) 73.1 Lymph % (Auto) 14.1 Pettis % (Auto) 10.3 Eos % (Auto) 1.5 Baso % (Auto) 0.5 Neut # (Auto) 6.36 Lymph # (Auto) 1.22 Pettis # (Auto) 0.89 H Eos # (Auto) 0.13 Baso # (Auto) 0.04 Immature Gran # (Auto) 0.04 H Sodium 129 L Potassium 5.3 H Chloride 94 L Carbon Dioxide 23 Anion Gap 12.0 H BUN 18 Creatinine 0.88 Est Cr Clr Drug Dosing 102.8 Est GFR ( Amer) 107.5 Est GFR (Non-Af Amer) 92.7 BUN/Creatinine Ratio 20.5 H Glucose 101 H Calcium 10.0 Magnesium 2.2 Total Bilirubin 0.9 AST 32 ALT 12 Alkaline Phosphatase 135 H Ammonia Troponin I < 0.015 Total Protein 9.2 H Albumin 3.4 Globulin 5.8 H Albumin/Globulin Ratio 0.6 L TSH 1.620 Specimen Hemolysis Urine Color Urine Appearance Urine pH Ur Specific [place] Urine Protein Urine Glucose (UA) Urine Ketones Urine Blood Urine Nitrite Urine Bilirubin Urine Urobilinogen Ur Leukocyte Esterase COVID-19 Eval Order SARS-CoV-2, RNA, NAAT 12/02/20 12/02/20 12/02/20 07:58 07:58 08:57 WBC RBC Hgb Hct MCV MCH MCHC RDW Std Deviation RDW Coeff of Zachary Plt Count MPV Immature Gran % (Auto) Neut % (Auto) Lymph % (Auto) Pettis % (Auto) Eos % (Auto) Baso % (Auto) Neut # (Auto) Lymph # (Auto) Pettis # (Auto) Eos # (Auto) Baso # (Auto) Immature Gran # (Auto) Sodium Potassium Chloride Carbon Dioxide Anion Gap BUN Creatinine Est Cr Clr Drug Dosing Est GFR ( Amer) Est GFR (Non-Af Amer) BUN/Creatinine Ratio Glucose Calcium Magnesium Total Bilirubin AST ALT Alkaline Phosphatase Ammonia Troponin I Total Protein Albumin Globulin Albumin/Globulin Ratio TSH Specimen Hemolysis Urine Color Yellow Urine Appearance Clear Urine pH 7.0 Ur Specific [place] 1.007 Urine Protein Negative Urine Glucose (UA) Negative Urine Ketones Negative Urine Blood Negative Urine Nitrite Negative Urine Bilirubin Negative Urine Urobilinogen Negative Ur Leukocyte Esterase Negative COVID-19 Eval [facility] SARS-CoV-2, RNA, NAAT NEGATIVE 12/02/20 09:06 WBC RBC Hgb Hct MCV MCH MCHC RDW Std Deviation RDW Coeff of Zachary Plt Count MPV Immature Gran % (Auto) Neut % (Auto) Lymph % (Auto) P[place] % (Auto) Eos % (Auto) Baso % (Auto) Neut # (Auto) Lymph # (Auto) Pettis # (Auto) Eos # (Auto) Baso # (Auto) Immature Gran # (Auto) Sodium Potassium Chloride Carbon Dioxide Anion Gap BUN Creatinine Est Cr Clr Drug Dosing Est GFR ( Amer) Est GFR (Non-Af Amer) BUN/Creatinine Ratio Glucose Calcium Magnesium Total Bilirubin AST ALT Alkaline Phosphatase Ammonia 25.0 Troponin I Total Protein Albumin Globulin Albumin/Globulin Ratio TSH Specimen Hemolysis Urine Color Urine Appearance Urine pH Ur Specific [place] Urine Protein Urine Glucose (UA) Urine Ketones Urine Blood Urine Nitrite Urine Bilirubin Urine Urobilinogen Ur Leukocyte Esterase COVID-19 Eval Order SARS-CoV-2, RNA, NAAT Diagnostic Findings XR chest 1V portable CLINICAL HISTORY: weakness COMPARISON STUDY: 11/30/2020 FINDINGS: The cardiac and mediastinal contours are normal. There is no evidence of focal pulmonary consolidation. There is no evidence of failure. No pleural ef fusions are visualized.[There are old left-sided rib deformities. IMPRESSION: No active disease in the chest. Code Status & VTE Plan VTE Prophylaxis Plan VTE Prophylaxis will be ordered: Yes PG Care Time/CCT Total # of Minutes Spent Total Time Spent with Patient: Total time spent is greater than 50% in coordination of care (as documented) at patient's floor/unit and/or counseling patient: Coding Level of Care Code 36573 Initial Inpt Care Lvl 3 Diagnoses Hyponatremia E87.1 Hyperkalemia E87.5 Abdominal ascites R18.8 Ascites type: other type Alcoholic cirrhosis of liver K70.31 Ascites presence: with ascites Buckle fracture of right wrist S62.101A Encounter type: initial encounter Hemiplegia, post-stroke I69.359 HTN (hypertension) I10 (1) Abdominal ascites Ascites type: other type Qualified Code(s): R18.8 - Other ascites (2) Alcoholic cirrhosis of liver Ascites presence: with ascites Qualified Code(s): K70.31 - Alcoholic cirrhosis of liver with ascites (3) Buckle fracture of right wrist Encounter type: initial encounter Qualified Code(s): S62.101A - Fracture of unspecified carpal bone, right wrist, initial encounter for closed fracture
[2020-12-02] MEDS ORDERED: ONDANSETRON INJ 2 MG/ML 2 ML VIAL IV PRN (11:12)
[2020-12-02] MEDS ORDERED: MELATONIN 3 MG TAB PO PRN (11:12)
[2020-12-02] MEDS: ENOXAPARIN INJ 40 MG/0.4 ML SYR SQ SCH (12:45)
[2020-12-02 12:48] LABS: BUN Creatinine Ratio 19.3 (10-20); Calcium 9.2 mg/dl (8.5-10.1); Creatinine Clr Calc Pharmacy 107.7 ml/min; Est GFR (African American) 109.5; Est GFR (Non-African American) 94.5
--- NOTE | 2020-12-02 14:18 | Electrocardiogram Report ---
Test Reason : Blood Pressure : / mmHG Vent. Rate : 107 BPM Atrial Rate : 107 BPM P-R Int : 150 ms QRS Dur : 080 ms QT Int : 340 ms P-R-T Axes : 045 064 053 degrees QTc Int : 453 ms Sinus tachycardia Low voltage QRS Borderline ECG When compared with ECG of 30-NOV-2020 02:47, Criteria for Septal infarct are no longer Present Confirmed by Aristeo Soni ([id number]) on 12/02/2020 2:17:53 PM Referred By: REFERRED SELF Confirmed By:Aristeo Soni
[2020-12-02] MEDS: ACETAMINOPHEN 325 MG TAB PO PRN (15:23)
[2020-12-02] MEDS ORDERED: MoRPHine SULFATE 2 MG/ML CARP IV STA (18:21)
[2020-12-02] MEDS: DOCUSATE SODIUM 100 MG CAP PO SCH (20:08)
[2020-12-03] MEDS: ACETAMINOPHEN 325 MG TAB PO PRN ×4 (06:39→19:26)
[2020-12-03 07:07] LABS: Hematocrit (blood only) 40.4 % (42-52); Mean Corpuscular Hemoglobin 31.7 pg (25-34); Mean Corpuscular Hgb Conc 34.7 g/dL (32-36); Mean Corpuscular Volume 91.4 fL (80-100); Mean Platelet Volume 9.3 fL (7.4-10.4); Platelet Count 266 K/uL (130-400); RDW Coefficient of Variation 14.1 % (11.5-14.5); RDW Standard Deviation 47.8 fL (36.4-46.3); Red Blood Count 4.42 M/uL (4.7-6.1); White Blood Count 6.47 K/uL (4.8-10.8)
[2020-12-03 07:35] LABS: BUN Creatinine Ratio 19.1 (10-20); Calcium 9.3 mg/dl (8.5-10.1); Creatinine Clr Calc Pharmacy 98.9 ml/min; Est GFR (African American) 102.3; Est GFR (Non-African American) 88.3; Potassium 5.1 mmol/L (3.5-5.1)
[2020-12-03] MEDS: DOCUSATE SODIUM 100 MG CAP PO SCH ×2 (08:10→20:38)
[2020-12-03] MEDS: PANTOprazole 40 MG TAB PO SCH (08:10)
[2020-12-03] MEDS: CHOLECALCIFEROL 1,000 UNITS 25 MCG TAB PO SCH (08:10)
[2020-12-03] MEDS: ENOXAPARIN INJ 40 MG/0.4 ML SYR SQ SCH (08:11)
[2020-12-03] MEDS: THIAMINE HCL 100 MG TAB PO SCH (08:11)
--- NOTE | 2020-12-03 09:45 | Hospitalist Progress Note ---
Date of Service December 03, 2020 Assessment & Plan (1) Hyponatremia: no reason to suspect dehydration more likely he is drinking too much free water, reports 5-6 32oz bottles of ice water a day, says he cannot get enough really needs a fluid restriction at home, discussed cutting back to 2000mL a day might be difficult to achieve as he says he has a lot of thirst sodium is up to 131, continue fluid restriction, no further NSS repeat BMP in the morning (2) Hyperkalemia: hold spironolactone K down to 5.1 this morning resume lasix 40mg tomorrow morning (3) Abdominal ascites: paracentesis today for 2 liters gave Albumin IV afterwards (4) Alcoholic cirrhosis of liver: has issues with ascites, high ammonia levels (5) Buckle fracture of right wrist: just happened a few days ago, typically would not be a problem however, he has left sided hemiparesis from prior stroke difficult time maneuvering at home and not putting too much weight/pressure on wrist will consult PT/OT, need to determine if he is safe at home (6) Hemiplegia, post-stroke: happened in 2005 he has a lift chair that is broken temporarily he normally lives by himself (7) HTN (hypertension): Admission and Anticipated Discharge Date Admission Date: December 02, 2020 Subjective patient feeling better, was able to ambulate with assistance to the litter to go for paracentesis his sodium is up to 131 he had paracentesis for 2L, albumin given we discussed need for fluid restriction, likely the excessive free water that dropped his Na level discussed that he can eat a little more salt but not too much hopeful to go home tomorrow Review of Systems Review of Systems: All systems reviewed & are unremarkable except as noted in Subjective Physical Exam Constitutional: WD/WN, vitals as above + disheveled, cooperative and comfortable; no acute distress Neck: trachea midline, no thyromegaly Respiratory: normal respiratory effort, lungs clear to auscultation Cardiovascular: RRR, no murmur, no edema Gastrointestinal (Abdomen): normal bowel sounds, soft, nontender, no hepatosplenomegaly Percussion/Palpation: + ascites Musculoskeletal: Head/Neck/Chest: normocephalic, head atraumatic and neck supple Extremities: + abnormal strength (left sided paresis); + extremities abnormal to inspection (right wrist in splint) Skin: no rashes, warm and dry Neurologic: patellar DTR's 2+ bilat, sensation intact and PERRL, EOMI, accommodation nl, no face palsy, no dysarthria Psychiatric: A+Ox3, euthymic affect Lymphatic: no cervical or axillary lymphadenopathy Results & Data Results & Data ([facility]) Vital Signs (Past 12 Hours) Vital Signs Temp Pulse Resp BP Pulse Ox 12/03/20 07:59 36.8 C 101 H 18 114/75 94 12/02/20 23:34 37.1 C 115 H 22 126/87 98 Laboratory Results Laboratory Results - last 24 hr 12/02/20 12/02/20 12/03/20 12:04 12:59 06:22 WBC 6.47 RBC 4.42 L Hgb 14.0 Hct 40.4 L MCV 91.4 MCH 31.7 MCHC 34.7 RDW Std Deviation 47.8 H RDW Coeff of Zachary 14.1 Plt Count 266 MPV 9.3 Sodium 130 L Potassium 4.7 Chloride 101 Carbon Dioxide 23 Anion Gap 6.0 BUN 16 Creatinine 0.84 Est Cr Clr Drug Dosing 107.7 Est GFR ( Amer) 109.5 Est GFR (Non-Af Amer) 94.5 BUN/Creatinine Ratio 19.3 Glucose 89 Calcium 9.2 12/03/20 06:22 WBC RBC Hgb Hct MCV MCH MCHC RDW Std Deviation RDW Coeff of Zachary Plt Count MPV Sodium 131 L Potassium 5.1 Chloride 100 Carbon Dioxide 24 Anion Gap 7.0 BUN 18 Creatinine 0.93 Est Cr Clr Drug Dosing 98.9 Est GFR ( Amer) 102.3 Est GFR (Non-Af Amer) 88.3 BUN/Creatinine Ratio 19.1 Glucose 95 Calcium 9.3 Medications Administered Current Inpatient Medications Acetaminophen (Acetaminophen 325 Mg Tab) 650 mg PO Q4H PRN PRN Reason: pain/fever Stop: 01/01/21 11:11 Last Admin: 12/03/20 06:39 Dose: 650 mg Documented by: Docusate Sodium (Docusate Sodium 100 Mg Cap) 100 mg PO BID DONN Stop: 01/01/21 20:59 Last Admin: 12/03/20 08:10 Dose: 100 mg Documented by: Enoxaparin Sodium (Enoxaparin Inj 40 Mg/0.4 Ml Syr) 40 mg SQ DAILY [facility] Stop: 01/01/21 11:44 Last Admin: 12/03/20 08:11 Dose: 40 mg Documented by: Albumin Human (Albumin 25%) 12.5 gm in 50 mls @ 50 mls/hr IV TODAY@1000,1100 [facility] Stop: 12/03/20 23:59 Melatonin (Melatonin 3 Mg Tab) 3 mg PO HS PRN PRN Reason: Sleep Stop: 01/01/21 11:11 Ondansetron HCl (Ondansetron Inj 2 Mg/Ml 2 Ml Vial) 4 mg IV Q6H PRN PRN Reason: Nausea Stop: 01/01/21 11:11 Pantoprazole Sodium (Pantoprazole 40 Mg Tab) 40 mg PO DAILY [facility]; Protocol Stop: 01/02/21 08:59 Last Admin: 12/03/20 08:10 Dose: 40 mg Documented by: Thiamine HCl (Thiamine Hcl 100 Mg Tab) 100 mg PO DAILY [facility] Stop: 01/02/21 08:59 Last Admin: 12/03/20 08:11 Dose: 100 mg Documented by: Vitamin D (Cholecalciferol 1,000 Units 25 Mcg Tab) 1,000 units PO DAILY DONN Stop: 01/02/21 08:59 Last Admin: 12/03/20 08:10 Dose: 1,000 units Documented by: PG Care Time/CCT Total # of Minutes Spent Total Time Spent with Patient: Total time spent is greater than 50% in coordination of care (as documented) at patient's floor/unit and/or counseling patient: Coding Level of Care Code 31812 Subseq Hosp Care Lvl 3 Diagnoses Hyponatremia E87.1 Hyperkalemia E87.5 Abdominal ascites R18.8 Ascites type: other type Alcoholic cirrhosis of liver K70.31 Ascites presence: with ascites Buckle fracture of right wrist S62.101A Encounter type: initial encounter Hemiplegia, post-stroke I69.359 HTN (hypertension) I10 (1) Abdominal ascites Ascites type: other type Qualified Code(s): R18.8 - Other ascites (2) Alcoholic cirrhosis of liver Ascites presence: with ascites Qualified Code(s): K70.31 - Alcoholic cirrhosis of liver with ascites (3) Buckle fracture of right wrist Encounter type: initial encounter Qualified Code(s): S62.101A - Fracture of unspecified carpal bone, right wrist, initial encounter for closed fracture
[2020-12-03] MEDS: ALBUMIN 25% 12.5 GM/50 ML VIAL IV SCH ×2 (10:48→11:46)
--- NOTE | 2020-12-03 10:58 | Ultrasound Report ---
PARACENTESIS UNDER ULTRASOUND GUIDANCE CLINICAL HISTORY: ascites COMPARISON STUDY: No previous studies for comparison. FINDINGS: The risks, benefits, and alternatives to the procedure were discussed with the patient. [facility] [place] singh informed consent was obtained. Following real-time ultrasound localization, the skin was prepped and draped. Following local anesthesia with Xylocaine, the sheath paracentesis needle was inserted a nd approximately 2 liters of straw-colored fluid was removed by vacuum suction. A left lower quadrant approach was utilized. No significant residual fluid was identified following paracentesis. The patient tolerated the procedure well and left the department in satisfactory condition. IMPRESSION: Successful ultrasound-guided paracentesis with removal of approximately 2 liters of ascit ic fluid. ACT 112: Negative or not required by law. Electronically signed by: Migel Chang M.D. 12/03/2020 10:57 AM
[2020-12-04] MEDS: ACETAMINOPHEN 325 MG TAB PO PRN ×3 (00:04→12:46)
[2020-12-04] MEDS: ENOXAPARIN INJ 40 MG/0.4 ML SYR SQ SCH (08:23)
[2020-12-04] MEDS: CHOLECALCIFEROL 1,000 UNITS 25 MCG TAB PO SCH (08:23)
[2020-12-04] MEDS: DOCUSATE SODIUM 100 MG CAP PO SCH ×2 (08:23→21:49)
[2020-12-04] MEDS: PANTOprazole 40 MG TAB PO SCH (08:23)
[2020-12-04] MEDS: FUROSEMIDE 40 MG TAB PO SCH (08:23)
[2020-12-04] MEDS: THIAMINE HCL 100 MG TAB PO SCH (08:23)
[2020-12-04 08:40] LABS: BUN Creatinine Ratio 18.4 (10-20); Calcium 9.6 mg/dl (8.5-10.1); Creatinine Clr Calc Pharmacy 103.3 ml/min; Est GFR (Non-African American) 92.3; Magnesium 2.2 mg/dl (1.8-2.4); Phosphorus 3.9 mg/dl (2.5-4.9); Potassium 4.8 mmol/L (3.5-5.1)
[2020-12-04] MEDS ORDERED: MICONAZOLE NITRATE POWDER 43 GM EXT PRN (09:11)
[2020-12-04] MEDS ORDERED: POLYETHYLENE (MIRALAX) 17 GM PACK PO STA (11:09)
[2020-12-04] MEDS ORDERED: KETOROLAC TROMETHAMINE 15 MG/ML VIAL IV ONE (13:07)
--- NOTE | 2020-12-04 13:44 | XRay Report ---
XR wrist RT min 3V routine CLINICAL HISTORY: recent fracture, more pain COMPARISON: Right forearm radiographs November 30, 2020. FINDINGS: Carpal bones are intact. No acute fracture the distal right ulna is noted. There is overly ing cast which decreases fine detail. Alignment of the nondisplaced transverse distal metaphyseal fra cture of the right radius is unchanged. Cortical buckling within the lateral aspect of the metaphysis is again noted. No additional fractures are identified. IMPRESSION: No change in appearance of the nondisplaced distal right radial fracture. ACT 112: Negative or not required by law. Electronically signed by: Cody Noyola M.D. 12/04/2020 1:43 PM
[2020-12-04] MEDS: LACTULOSE SYRUP 30 GM/45 ML UDP PO SCH (14:16)
--- NOTE | 2020-12-04 15:27 | Hospitalist Progress Note ---
Date of Service December 04, 2020 Assessment & Plan (1) Hyponatremia: no reason to suspect dehydration more likely he is drinking too much free water, reports 5-6 32oz bottles of ice water a day, says he cannot get enough really needs a fluid restriction at home, discussed cutting back to 2000mL a day might be difficult to achieve as he says he has a lot of thirst sodium is stable at 131, continue fluid restriction, no further NSS repeat BMP in the morning (2) Hyperkalemia: hold spironolactone K down to 4.8 this morning continue lasix 40mg PO daily (3) Abdominal ascites: paracentesis 12/03 for 2 liters gave Albumin IV afterwards (4) Alcoholic cirrhosis of liver: has issues with ascites, high ammonia levels in the past but most recent ammonia level stable start on lactulose 30 daily for constipation (5) Buckle fracture of right wrist: just happened a few days ago, typically would not be a problem however, he has left sided hemiparesis from prior stroke difficult time maneuvering at home and not putting too much weight/pressure on wrist will consult PT/OT, need to determine if he is safe at home repeat x-ray on 12/04 shows no change in position of fracture use Toradol for pain control, says he cannot take morphine/Ultram/oxycodone supposed follow up with Dr. Hussein transportation is difficult for him will ask Dr. Hussein to see him while here, see if he needs cast or if splint will be sufficient (6) Hemiplegia, post-stroke: happened in 2005 he has a lift chair that is broken temporarily he normally lives by himself (7) HTN (hypertension): (8) Constipation: ongoing issue, taking stool softeners at home, not working no luck with Miralax will give lactulose 30gm daily Admission and Anticipated Discharge Date Admission Date: December 02, 2020 Subjective patient still cannot move his bowels, says his stools are very hard, he has had to disimpact himself at home last good BM was the Wednesday before he came into the hospital no luck with Colace and then a dose of Miralax today, offered him Lactulose, he will try it he says he has more pain with his right wrist got an x-ray, shows no change in position of the radius, fracture is not worse he says he cannot take morphine/codeine medications for the pain will try Toradol discussed going home tomorrow, he feels that it is reasonable Review of Systems Review of Systems: All systems reviewed & are unremarkable except as noted in Subjective Physical Exam Constitutional: WD/WN, vitals as above + disheveled, cooperative and comfortable; no acute distress Neck: trachea midline, no thyromegaly Respiratory: normal respiratory effort, lungs clear to auscultation Cardiovascular: RRR, no murmur, no edema Gastrointestinal (Abdomen): normal bowel sounds, soft, nontender, no hepatosplenomegaly Percussion/Palpation: + ascites Musculoskeletal: Head/Neck/Chest: normocephalic, head atraumatic and neck supple Extremities: + abnormal strength (left sided paresis); + extremities abnormal to inspection (right wrist in splint) Skin: no rashes, warm and dry Neurologic: patellar DTR's 2+ bilat, sensation intact and PERRL, EOMI, accommodation nl, no face palsy, no dysarthria Psychiatric: A+Ox3, euthymic affect Lymphatic: no cervical or axillary lymphadenopathy Results & Data Results & Data ([facility]) Vital Signs (Past 12 Hours) Vital Signs Temp Pulse Resp BP Pulse Ox 12/04/20 15:11 36.5 C 75 18 124/79 96 12/04/20 07:41 36.8 C 97 H 18 121/84 95 Laboratory Results Laboratory Results - last 24 hr 12/04/20 07:46 Sodium 131 L Potassium 4.8 Chloride 101 Carbon Dioxide 23 Anion Gap 7.0 BUN 16 Creatinine 0.89 Est Cr Clr Drug Dosing 103.3 Est GFR ( Amer) 107.0 Est GFR (Non-Af Amer) 92.3 BUN/Creatinine Ratio 18.4 Glucose 99 Calcium 9.6 Phosphorus 3.9 Magnesium 2.2 Medications Administered Current Inpatient Medications Acetaminophen (Acetaminophen 325 Mg Tab) 650 mg PO Q4H PRN PRN Reason: pain/fever Stop: 01/01/21 11:11 Last Admin: 12/04/20 12:46 Dose: 650 mg Documented by: Docusate Sodium (Docusate Sodium 100 Mg Cap) 100 mg PO BID DONN Stop: 01/01/21 20:59 Last Admin: 12/04/20 08:23 Dose: 100 mg Documented by: Enoxaparin Sodium (Enoxaparin Inj 40 Mg/0.4 Ml Syr) 40 mg SQ DAILY [facility] Stop: 01/01/21 11:44 Last Admin: 12/04/20 08:23 Dose: 40 mg Documented by: Furosemide (Furosemide 40 Mg Tab) 40 mg PO QAM [facility] Stop: 01/03/21 08:59 Last Admin: 12/04/20 08:23 Dose: 40 mg Documented by: Lactulose (Lactulose Syrup 30 Gm/45 Ml Udp) 30 gm PO DAILY DONN Stop: 01/03/21 13:44 Last Admin: 12/04/20 14:16 Dose: 30 gm Documented by: Melatonin (Melatonin 3 Mg Tab) 3 mg PO HS PRN PRN Reason: Sleep Stop: 01/01/21 11:11 Miconazole Nitrate (Miconazole Nitrate Powder 43 Gm) 1 appln EXT BID PRN PRN Reason: skin folds Stop: 01/03/21 09:10 Ondansetron HCl (Ondansetron Inj 2 Mg/Ml 2 Ml Vial) 4 mg IV Q6H PRN PRN Reason: Nausea Stop: 01/01/21 11:11 Pantoprazole Sodium (Pantoprazole 40 Mg Tab) 40 mg PO DAILY [facility]; Protocol Stop: 01/02/21 08:59 Last Admin: 12/04/20 08:23 Dose: 40 mg Documented by: Thiamine HCl (Thiamine Hcl 100 Mg Tab) 100 mg PO DAILY [facility] Stop: 01/02/21 08:59 Last Admin: 12/04/20 08:23 Dose: 100 mg Documented by: Vitamin D (Cholecalciferol 1,000 Units 25 Mcg Tab) 1,000 units PO DAILY [facility] Stop: 01/02/21 08:59 Last Admin: 12/04/20 08:23 Dose: 1,000 units Documented by: PG Care Time/CCT Total # of Minutes Spent Total Time Spent with Patient: Total time spent is greater than 50% in coordination of care (as documented) at patient's floor/unit and/or counseling patient: Coding Level of Care Code 84967 Subseq Hosp Care Lvl 3 Diagnoses Hyponatremia E87.1 Hyperkalemia E87.5 Abdominal ascites R18.8 Ascites type: other type Alcoholic cirrhosis of liver K70.31 Ascites presence: with ascites Buckle fracture of right wrist S62.101A Encounter type: initial encounter Hemiplegia, post-stroke I69.359 HTN (hypertension) I10 Constipation K59.00 (1) Abdominal ascites Ascites type: other type Qualified Code(s): R18.8 - Other ascites (2) Alcoholic cirrhosis of liver Ascites presence: with ascites Qualified Code(s): K70.31 - Alcoholic cirrhosis of liver with ascites (3) Buckle fracture of right wrist Encounter type: initial encounter Qualified Code(s): S62.101A - Fracture of unspecified carpal bone, right wrist, initial encounter for closed fracture
[2020-12-05 07:16] LABS: Creatinine Clr Calc Pharmacy 95.3 ml/min; Est GFR (African American) 102.3; Est GFR (Non-African American) 88.3
--- NOTE | 2020-12-05 08:11 | Orthopedic Consultation ---
Date of Service December 05, 2020 Assessment & Plan (1) Fracture of right radius: Discussed with Dr. Hussein. Continue nonoperative management for the right upper extremity. We will place him into a short arm cast today. He will need to be in this for about 6 weeks. We will see him back in the office in 6 weeks for cast removal and x-rays. He was instructed to keep the cast clean and dry until his follow-up. History of Present Illness Reason for Consultation: .Right distal radius fracture Requesting Physician: . Attending Physician: Raza Bowden DO .60-year-old [id number]-dphddwse male, goes by Arjun, who we are consulted for regarding a right distal radius fracture. He states that he fell proximately 6 days ago injuring the wrist. He did have some initial x-rays and repeat x-rays yesterday which showed the distal radius fracture essentially nondisplaced. Is been in a volar splint. No past wrist fractures. He does have a history of a stroke that he has some left-sided hemiplegia from. No other orthopedic complaints this time. Allergies Allergy/AdvReac Type Severity Reaction Status Date / Time latex Allergy Intermediate RASH Verified 12/02/20 07:07 bee venom protein (honey bee) Allergy Unknown CARDIAC Verified 12/02/20 07:07 SYMPTOMS bupropion Allergy Unknown Hives Verified 12/02/20 07:07 cat dander Allergy Unknown HIVES Verified 12/02/20 07:07 codeine AdvReac Unknown INTOLERANCE Verified 12/02/20 07:07 -INSOMNIA Home Medications Medication Instructions Recorded Confirmed Type omeprazole 40 mg PO DAILY #0 tab 10/24/20 12/02/20 Rx acetaminophen [Tylenol] 325 mg PO QID PRN 11/19/20 12/02/20 History melatonin 3 mg PO HS PRN 11/20/20 12/02/20 History cholecalciferol (vitamin D3) 1,000 mcg PO DAILY 11/30/20 12/02/20 History [Vitamin D3] docusate sodium [Colace] 100 mg PO BID 11/30/20 12/02/20 History furosemide See Rx Instructions .ROUTE .COMPLEX 11/30/20 12/02/20 History spironolactone See Rx Instructions .ROUTE .COMPLEX 11/30/20 12/02/20 History thiamine HCl (vitamin B1) [Vitamin 100 mg PO DAILY 11/30/20 12/02/20 History B-1] Past Med/Surg History Medical History Cirrhosis of liver Hemiplegia, post-stroke "L sided weakness s/p stroke" History of prolactinoma HTN (hypertension) Hx of fracture of rib Lumbar compression fracture Surgical History History of sinus surgery History of total knee arthroplasty Family History Father Diabetes Heart disease CKD (chronic kidney disease) Other Family history non-contributory Social History Smoking Status: Current every day smoker Tobacco Type: Cigarettes packs per day: 2.5; Cigarettes Per Day: 2-3PPD; Second Hand Exposure: Yes; Hx Alcohol Use: Yes (none since 11/19) Alcohol type: beer and hard liquor Alcohol Intake Frequency Comment: 7 drinks per day. 3 beers, 3-4 shots Hx Substance Use: No Preferred Language: Khmer Communication Ability: Effective Go Go Dancer Required: No Beliefs That Will Affect Care: None marital status: Current Living Situation: Alone current occupational status: disabled Feels Safe at Home: Yes Assistive Devices: None Review of Systems All systems reviewed & are unremarkable except as noted in HPI & below. Physical Exam . Constitutional well developed and well nourished; no acute distress Respiratory normal respiratory effort Cardiovascular Vessels: radial pulses present Extremities: normal capillary refill Musculoskeletal Tender to palpation at the fracture site of his distal radius. No deformity. Minimal swelling. Moves his thumb and fingers appropriately flexion extension. Skin no rashes, warm and dry + ecchymosis Neurologic Neurovascularly intact right upper extremity Psychiatric Orientation: alert and oriented x 3 Results & Data Results & Data Laboratory Results . Diagnostic Findings .X-rays of his wrist were reviewed which shows a transverse distal radius fracture of the right distal radius. PG Care Time/CCT Total # of Minutes Spent Total Time Spent with Patient: Total time spent is greater than 50% in coordination of care (as documented) at patient's floor/unit and/or counseling patient: Coding Level of Care Code 55912 Inpt Consult Level 3 Diagnoses Fracture of right radius S52.591D Encounter type: subsequent encounter Fracture healing: with routine healing Fracture morphology: other fracture Fracture type: closed Radius location: distal (1) Fracture of right radius Encounter type: subsequent encounter Fracture healing: with routine healing Fracture morphology: other fracture Fracture type: closed Radius location: distal Qualified Code(s): S52.591D - Other fractures of lower end of right radius, subsequent encounter for closed fracture with routine healing
[2020-12-05] MEDS: FUROSEMIDE 40 MG TAB PO SCH (08:24)
[2020-12-05] MEDS: CHOLECALCIFEROL 1,000 UNITS 25 MCG TAB PO SCH (08:24)
[2020-12-05] MEDS: ENOXAPARIN INJ 40 MG/0.4 ML SYR SQ SCH (08:24)
[2020-12-05] MEDS: PANTOprazole 40 MG TAB PO SCH (08:24)
[2020-12-05] MEDS: THIAMINE HCL 100 MG TAB PO SCH (08:24)
[2020-12-05] MEDS: LACTULOSE SYRUP 30 GM/45 ML UDP PO SCH (08:25)
[2020-12-05] MEDS: DOCUSATE SODIUM 100 MG CAP PO SCH (08:25)
[2020-12-05] MEDS: ACETAMINOPHEN 325 MG TAB PO PRN (11:09)
--- NOTE | 2020-12-05 11:27 | Discharge Summary ---
Date of Service December 05, 2020 Admission HPI Per Admitting Provider 60 yo male with history of alcoholic cirrhosis, stroke in 2005 causing left sided paraplegia and recent fall at home causing fracture of right wrist, presented to the ED this morning due to ongoing weakness and inability to care for himself at home. He fell a few days ago at home and suffered the fracture. It was recommended that he stay in the hospital for treatment and rehab. At home he lives by himself, uses a lift chair to help him get up. He has some home nursing visits. He refused to stay in the hospital. He says that the battery for the remote for his chair is not working and he fell to the floor, co uld not get up. In the ED labs showed a sodium of 129 and a slightly elevated potassium. He says he drinks ice water all the time, likely too much, claims he drinks 5-6 vincent jars and each jar he claims is 32 ounces. I explained that this is too much water, especially for someone with cirrhosis. He says he follows a low sodium diet. He says he has been following with Allan ROSE, supposed to see Callie KELLY today and supposed to get a therapeutic paracentesis on 12/03/20. He is agreeable to staying in the hospital, admits he cannot get around his home right now with his right wrist fracture. He denies fever/chills, chest pain, dyspnea, cough, nausea/vomiting. Admits to some hard stools recently. No edema in the legs. Has some pain in right wrist. Has his baseline left sided weakness. He says he has not had a drink of alcohol since November 18 and he is very proud of this. Principal Diagnosis Hyponatremia, weakness Discharge Exam Constitutional WD/WN, vitals as above + disheveled, cooperative and comfortable; no acute distress Neck trachea midline, no thyromegaly Respiratory normal respiratory effort, lungs clear to auscultation Cardiovascular RRR, no murmur, no edema Gastrointestinal (Abdomen) normal bowel sounds, soft, nontender, no hepatosplenomegaly Percussion/Palpation: + ascites Musculoskeletal Head/Neck/Chest: normocephalic, head atraumatic and neck supple Extremities: + abnormal strength (left sided paresis); + extremities abnormal to inspection (right wrist in splint) Skin no rashes, warm and dry Neurologic patellar DTR's 2+ bilat, sensation intact and PERRL, EOMI, accommodation nl, no face palsy, no dysarthria Psychiatric A+Ox3, euthymic affect Lymphatic no cervical or axillary lymphadenopathy Discharge Data Allergies Allergy/AdvReac Type Severity Reaction Status Date / Time latex Allergy Intermediate RASH Verified 12/02/20 07:07 bee venom protein (honey bee) Allergy Unknown CARDIAC Verified 12/02/20 07:07 SYMPTOMS bupropion Allergy Unknown Hives Verified 12/02/20 07:07 cat dander Allergy Unknown HIVES Verified 12/02/20 07:07 codeine AdvReac Unknown INTOLERANCE Verified 12/02/20 07:07 -INSOMNIA Consultations 12/02/20 09:31 ED Decision to Admit Stat 12/02/20 11:12 Consult Case Management - Discharge Planning Routine 12/04/20 15:28 Consult Orthopedic Surgery Routine Ordered Studies 12/03/20 09:18 US paracentesis abd w/image Routine Hospital Course (1) Hyponatremia: no reason to suspect dehydration more likely he is drinking too much free water, reports 5-6 32oz bottles of ice water a day, says he cannot get enough really needs a fluid restriction at home, discussed cutting back to 2000mL a day might be difficult to achieve as he says he has a lot of thirst sodium is stable at 131, continue fluid restriction, no further NSS on discharge, he will continue fluid restriction of 2000mL (68 fluid ounces) liberate sodium in diet (2) Hyperkalemia: resolved with IV fluids continue Lasix 40mg AM and 20mg PM resume Spironolactone (3) Abdominal ascites: paracentesis 3/2 for 2 liters gave Albumin IV afterwards (4) Alcoholic cirrhosis of liver: has issues with ascites, high ammonia levels in the past but most recent ammonia level stable start on lactulose 30 daily for constipation this worked for constipation but he refuses further Lactulose this morning he missed appointment with Callie Bowden, recommend he reschedule for 2 weeks from now (5) Buckle fracture of right wrist: just happened a few days ago, typically would not be a problem however, he has left sided hemiparesis from prior stroke difficult time maneuvering at home and not putting too much weight/pressure on wrist will consult PT/OT, need to determine if he is safe at home repeat x-ray on 12/04 shows no change in position of fracture use Toradol for pain control, says he cannot take morphine/Ultram/oxycodone short arm cast placed by orthopedics on 12/05 he should follow up with Dr. Hussein in 6 weeks for cast removal and repeat x- rays instructed to keep cast clean and dry (6) Hemiplegia, post-stroke: happened in 2005 he has a lift chair that is broken temporarily he normally lives by himself (7) HTN (hypertension): (8) Constipation: ongoing issue, resolved with Lactulose 30gm yesterday he refuses more Lactulose recommend taking miralax daily, can increase to BID if needed continue colace Total Time Total Time Spent Total Time Spent (In Minutes): 32 minutes Total Time Includes: Examination of the Patient, Discharge Planning, Medication Reconciliation and Communication With Other Providers Discharge Plan Discharge Items Patient Disposition: Home - Home Health Services Reason For Visit: FALL,HYPOATREMIA Discharge Diagnosis: Hyponatremia Constipation Right distal radius fracture Condition on Discharge: Good Goals: follow up with orthopedics in 6 weeks follow fluid restriction of 2 liters a day Activity: Resume your previous activity Weightbearing: Full weightbearing Non-emergency contact: Primary Care Provider Call non-emergency contact if: you have any medication questions and your symptoms worsen Follow-up/Referrals: PCP,NO [Primary Care Provider] - Diet: Regular Fluids: 2000ml (8 cups) Addtl Attending Provider Instructions: Medications: - MIRALAX: recommend taking this every morning, if you still experience constipation and hard stools you can take twice a day continue to use your colace Hyponatremia: sodium was 129 on admission, it is 131 now most likely caused by excessive fluid intake if you were drinking as much water as you claim it is normal to have a lot of thirst with cirrhosis but you need to limit how much water you are drinking would recommend keeping your total fluid intake to 2 liters a day, this equals 68 fluid ounces this would be total for water, tea, soda, juice, coffee, whatever you might drink can liberate sodium in your diet a little bit more Cirrhosis: you had a paracentesis on Wednesday for 2 liters recommend you call MILTON Lao, to reschedule appointment in two weeks continue on Lasix and Spironolactone Right wrist buckle fracture placed in cast today, this will stay in place for 6 weeks please follow up with Dr. Hussein at [facility] orthopedics in 6 weeks keep cast clean and dry Constipation: take Miralax daily, can increase to twice a day if needed to stay regular continue to take Colace important that you take the Miralax and the colace with 8 oz of water/juice Pending Studies at Discharge: No Stand-Alone Forms: [facility] Frequency, Smoking Cessation Medications and DC Order Prescriptions: New polyethylene glycol 3350 [Miralax] 17 gram/dose powder 17 g PO DAILY Qty: 119 RF: 0 Continued omeprazole 20 mg Tablet,Delayed Release (Dr/Ec) 40 mg PO DAILY Qty: 0 RF: 0 melatonin 3 mg tablet 3 mg PO HS PRN (Reason: Sleep) RF: 0 acetaminophen [Tylenol] 325 mg Tablet 325 mg PO QID PRN (Reason: Pain) RF: 0 docusate sodium [Colace] 100 mg Capsule 100 mg PO BID RF: 0 furosemide 20 mg tablet See Rx Instructions .ROUTE .COMPLEX RF: 0 spironolactone 50 mg tablet See Rx Instructions .ROUTE .COMPLEX RF: 0 thiamine HCl (vitamin B1) [Vitamin B-1] 100 mg Tablet 100 mg PO DAILY RF: 0 cholecalciferol (vitamin D3) [Vitamin D3] 25 mcg (1,000 unit) Capsule 1,000 mcg PO DAILY RF: 0 Discharge Orders: Discharge Order (Routine); Ordered 12/05/20 Ordered By: Raza Bowden Admission Data Admit Date/Time: 12/02/20 09:19 Attending Provider: Raza Bowden Admit Provider: Raza Bowden Primary Care Provider: PCP,NO Other Providers: Raza Bowden ; [employer] ; Mello Hussein Coding Level of Care Code D/C Day Management >30 mins Diagnoses Hyponatremia E87.1 Hyperkalemia E87.5 Abdominal ascites R18.8 Ascites type: other type Alcoholic cirrhosis of liver K70.31 Ascites presence: with ascites Buckle fracture of right wrist S62.101A Encounter type: initial encounter Hemiplegia, post-stroke I69.359 HTN (hypertension) I10 Constipation K59.00
== END 2020-12-05 14:06 | disposition home health service (06) | DRG 641 ==
LOC: ED 06:49 → 2N 09:19

== ENCOUNTER 2021-01-07 12:13 | Inpatient (IN) ==
--- NOTE | 2021-01-06 10:34 | Anesthesiology Consultation ---
Date of Service January 06, 2021 Assessment & Plan (1) Encounter for pre-operative examination: Chart Review Chart Review: Acceptable Risk for Surgery (pending DOS PRP and anesthesia evaluation ) and Patient NOT seen in Pre Admission Testing Will check PRP stat AM of surgery (to recheck Na). Will leave to anesthesiologist discretion if repeat EKG needed. Per nursing assessment 01/06/21, pt resides in [facility]. No recent travel. Wears mask in public. No known Covid positive contacts or Covid related symptoms. No known Covid infection in the past 90 days. Covid test 01/03/21 = negative. Patient admitted to [facility] from 12/02/20 to 12/05/20= admitted for hyponatremia/weakness. Presented to emergency room with ongoing weakness and inability to care for himself at home. Had fall several days earlier and suffered from right wrist fracture. 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 At time of initial fallit was recommended patient stay in hospital for treatment and rehabpatient refused. At time of 12/02/2020 hospital admissionpatient agreeable to staying in hospital. Hyponatremiano reason to suspect dehydrationlikely drinking too much free water. Discussed fluid restriction to 2000 mL a day. Sodium stable at 131 at discharge. Hyperkalemiaresolved. Abdominal ascitesparacentesis 12/03/2020 for 2 L. Alcoholic cirrhosis of liverissues with ascites, high ammonia level in the past but most recent ammonia level stable. Started on lactulose for constipation. Buckle fracture of right wristhappened several days agohaving issues since he has left-sided hemiparesis. Follow-up with orthopedics. Hemiplegia post strokein 2005. Hypertension/constipation. History Surgery Operation Date: 01/07/21 14:20 Proposed Procedures p Open Reduction Internal Fixation Right Distal Radius Fracture - Mello Hussein MD Height/Weight Height: 5 ft 9 in Weight: 92.561 kg Allergies Allergy/AdvReac Type Severity Reaction Status Date / Time bee venom protein (honey bee) Allergy Severe tachycardia, Verified 01/06/21 10:29 difficulty breathing bupropion Allergy Intermediate "causes an Verified 01/06/21 10:29 allergy to peanuts" cat dander Allergy Intermediate HIVES Verified 01/06/21 10:29 latex Allergy Mild RASH Verified 01/06/21 10:29 codeine AdvReac Intermediate Insomnia Verified 01/06/21 10:29 Medications Home Medications Medication Instructions Recorded Confirmed Last Taken acetaminophen [Tylenol] 325 mg PO QID PRN 11/19/20 01/06/21 11/19/20 02:30 cholecalciferol (vitamin D3) 1,000 mcg PO QAM 11/30/20 01/06/21 01/02/21 [Vitamin D3] docusate sodium [Colace] 100 mg PO BID 11/30/20 01/06/21 01/02/21 thiamine HCl (vitamin B1) [Vitamin 100 mg PO QAM 11/30/20 01/06/21 01/02/21 B-1] Saccharomyces boulardii [Florastor] 250 mg PO BID #20 cap 01/03/21 01/06/21 Unkn own amoxicillin-pot clavulanate 1 tab PO BID #14 tab 01/03/21 01/06/21 Unknown [Augmentin] furosemide 40 mg PO QAM 01/03/21 01/06/21 Unknown spironolactone 100 mg PO QAM 01/03/21 01/06/21 01/02/21 sulfamethoxazole-trimethoprim 2 tab PO BID 7 Days #28 tab 01/03/21 01/06/21 Unknown [Bactrim DS] tramadol 50 mg PO Q6H PRN #14 tab 01/03/21 01/06/21 Unknown omeprazole 20 mg PO QAM 01/06/21 01/06/21 Unknown Past Medical History Medical History Abdominal ascites Chronic back pain Cirrhosis of liver Alcoholic cirrhosis Did have paracentesis while admitted 12/03/20 CVA (cerebral vascular accident) 2005--uses a cane to ambulate, pt states he can not move his left arm at all--no neurologist Elevated cholesterol Hearing deficit Hemiplegia, post-stroke pt states he cannot move his left arm at all History of anesthesia reaction woke up during wisdom tooth removal, per pt "it takes a lot to knock me out and keep me out" History of prolactinoma (~1999) HTN (hypertension) Hyponatremia Noted while patient was admitted December 2019- put on fluid reistriction Lumbar compression fracture 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 Past Family History Family History Father Diabetes Heart disease CKD (chronic kidney disease) Other Family history non-contributory No family history of adverse response to anesthesia Past Surgical History Surgical History History of abdominal paracentesis x2 History of arthroscopy of left knee History of placement of ear tubes History of sinus surgery History of surgical removal of pituitary gland per pt just tumor removed not pituitary gland History of tonsillectomy and adenoidectomy History of wisdom tooth extraction Social History Smoking Status: Current every day smoker tobacco type: cigarettes Smoking cigarettes per day: 2 pack a day Hx Alcohol Use: No (Quit Oct 18, 2020) Alcohol Intake Frequency Comment: Prior to pt states "I drank a lot" Hx Substance Use: No substance use type: does not use Testing Laboratory Results Laboratory Tests 12/03/20 12/04/20 12/05/20 06:22 07:46 06:25 WBC 6.47 Hgb 14.0 Hct 40.4 L Plt Count PT INR APTT Sodium 131 L Potassium 4.8 Chloride 101 Carbon Dioxide 23 BUN 16 Creatinine 0.93 Glucose 99 12/17/20 12/17/20 08:26 08:26 WBC Hgb Hct Plt Count 210 PT 11.4 INR 1.1 APTT 26.1 Sodium Potassium Chloride Carbon Dioxide BUN Creatinine Glucose 12/02/2020 = AST: 32 ALT: 12 ALK PHOS: 135 Electrocardiogram Date: 12/02/20 Findings: + ST @ (107 bpm) Low voltage QRS. Chest X-Ray Date: 12/02/20 Findings: + NAD 1 view chest x-ray Echocardiogram Date: 10/21/20 EF: >70% RWMA: + none Other Findings: + LVH (Mild/concentric) and + diastolic dysfunction (Type I) Valvular Disease: + no significant valvular disease (However valves were not well seen) Hyperdynamic systolic function. Normal estimated RVSP. Abdominal ascites. Other Testing Chest CT 05/21/2020 = severe chronic T7 compression fracture. Multiple old, healed bilateral rib fractures. Old, healed left scapular fracture. No acute fractures identified. Mild aneurysmal dilatation of the ascending thoracic aorta measuring up to 4.4 cm in diameter. No acute process within the chest. Cir rhotic liver, splenomegaly, and a small amount of upper abdominal ascites.
[~2021-01-07 12:13] MED LIST: ACETAMINOPHEN 500 MG TAB PO SCH; LR 15ML/HR IV SCH; LR 60ML/HR IV SCH; ceFAZolin 2000MG 2,000 MG/15 ML SYR IV SCH
[2021-01-07] MEDS ORDERED: fentaNYL citrate 100 MCG/2 ML VIAL ONE ×2 (13:26→15:15)
[2021-01-07] MEDS ORDERED: MIDAZOLAM HCL 1 MG/ML 2ML VIAL ONE (13:26)
[2021-01-07] MEDS ORDERED: PHENYLEPHRINE 100MCG/ML 5ML SYR ONE (13:28)
[2021-01-07] MEDS ORDERED: DEXAMETHASONE SOD INJ 4 MG/ML VIAL ONE (13:28)
[2021-01-07] MEDS ORDERED: ePHEDrine sulfate 50 MG/ML SYR ONE (13:28)
[2021-01-07] MEDS ORDERED: LIDOCAINE HCL 2% 2 ML VIAL/AMP(20MG/ML) INFIL ONE (13:28)
[2021-01-07] MEDS ORDERED: ONDANSETRON INJ 2 MG/ML 2 ML VIAL ONE (13:28)
[2021-01-07] MEDS ORDERED: PROPOFOL IV EMULSION 10 MG/ML 20 ML VIAL IV ONE (13:28)
[2021-01-07 13:43] LABS: Influenza A virus by PCR Negative (Neg); Influenza B virus by PCR Negative (Neg); RSV by PCR Negative (Neg); SARS CoV2 RNA(COVID-19) InHosp NEGATIVE (Negative)
[2021-01-07 13:47] LABS: Calcium 9.7 mg/dl (8.5-10.1); Creatinine Clr Calc Pharmacy 61.2 ml/min; Est GFR (African American) 63.5; Est GFR (Non-African American) 54.8; Potassium 5.5 mmol/L (3.5-5.1)
[2021-01-07] MEDS ORDERED: ROCURONIUM BROMIDE 10 MG/ML 5 ML VIAL IV ONE ×2 (13:52→15:29)
[2021-01-07] MEDS ORDERED: SUGAMMADEX SODIUM 200 MG/2 ML VIAL IV ONE (13:54)
[2021-01-07] MEDS ORDERED: BUPIVACAINE 0.25% 30 ML VIAL ONE (14:08)
--- NOTE | 2021-01-07 14:31 | History & Physical Bridge Note ---
Date of Service January 07, 2021 History & Physical Bridge Note I have examined the patient, reviewed the History & Physical and in the interval since the performance of the History & Physical I have noted the following changes of clinical significance: no changes noted
[2021-01-07] MEDS ORDERED: BUPIVACAINE/EPINEPHRINE 0.5% MPF 1:200,000 30 ML VIAL ONE (15:20)
[2021-01-07] MEDS ORDERED: LARYING-O-JET KIT (LTA) ONE (15:28)
[2021-01-07] MEDS ORDERED: LABETALOL HCL IV 5 MG/ML 20ML IV ONE (15:48)
[2021-01-07] MEDS: BACITRACIN INJ 50,000 UNIT VIAL ONE ×2 (16:09→16:25)
[2021-01-07] MEDS ORDERED: HYDROmorphone INJ 2 MG/ML SYR/VIAL ONE (16:23)
[2021-01-07] MEDS ORDERED: BACITRACIN OINT 15 GM TUBE ONE (16:33)
--- NOTE | 2021-01-07 16:54 | Post Operative Brief Note ---
PG Immediate Post Op with CF Date of Surgery January 07, 2021 Pre & Post Diagnosis Operation Date: 01/07/21 14:20 Pre-Op Diagnosis: Right Distal Radius Displaced Fracture Post-Op Diagnosis: Right Distal Radius Displaced Fracture I identified the patient and participated in the time-out.: Yes Procedure Operation Date: 01/07/21 14:20 Actual Procedures p Open Reduction Internal Fixation Right Distal Radius Fracture(Right) - Mello Hussein MD s Right Carpal Tunnel Release(Right) - Mello Hussein MD Surgeon Mello Hussein MD Misdraw Hand JS Diaz Estimated Blood Loss 30 Findings Consistent with Post-Op Diagnosis Fluids 700 cc Specimens Specimen Description: none per surgeon Anesthesia Type General Complications none Disposition Accompanied Patient To Recovery: No Disposition: Recovery Room
[2021-01-07] MEDS ORDERED: ATROPINE SULFATE 0.1 MG/ML 10ML SYR IV PRN (17:25)
[2021-01-07] MEDS ORDERED: fentaNYL citrate 100 MCG/2 ML VIAL IV PRN (17:25)
[2021-01-07] MEDS ORDERED: ePHEDrine sulfate 50 MG/ML AMP IV PRN (17:25)
--- NOTE | 2021-01-07 17:25 | Anesthesiology Progress Note ---
Date of Service January 07, 2021 Anesthesia Post Procedure Vital Signs Vital Signs: Temp Pulse Pulse Resp BP Pulse Ox 01/07/21 17:15 87 17 137/87 93 01/07/21 17:05 88 17 146/92 H 97 01/07/21 16:58 36.6 C 96 H 18 147/91 H 96 01/07/21 12:33 37.0 C 105 H 20 102/77 96 Pain Intensity Right Wrist: Pain Intensity: 0 Transfer of Care Handoff Completed per policy Notes Mental Status: alert / awake / arousable and participated in evaluation Patient Amnestic to Procedure: Yes Nausea / Vomiting: adequately controlled Pain: adequately controlled Airway Patency, RR, SpO2: stable & adequate BP & HR: stable & adequate Hydration State: stable & adequate Anesthetic Complications: no major complications apparent and Pt Satisfied with anesthetic care
[2021-01-07] MEDS ORDERED: ALUMINUM/MAGNESIUM SUSP 30 ML UDC PO PRN (18:19)
[2021-01-07] MEDS ORDERED: MAGNESIUM HYDROXIDE SUSP 30 ML UDC PO PRN (18:19)
[2021-01-07] MEDS ORDERED: bisacodyL 10 MG SUPP PR PRN (18:19)
[2021-01-07] MEDS ORDERED: METOCLOPRAMIDE HCL INJ 5 MG/ML 2 ML VIAL IV PRN (18:19)
[2021-01-07] MEDS ORDERED: NALOXONE HCL 0.4 MG/1 ML VIAL/CARP IV PRN (18:19)
[2021-01-07] MEDS ORDERED: diphenhydrAMINE Capsule 25 MG CAP PO PRN (18:19)
[2021-01-07] MEDS ORDERED: oxyCODONE HCL IR 5 MG TAB (IMMEDIATE RELEASE) PO PRN (18:19)
[2021-01-07] MEDS ORDERED: HYDROmorphone INJ 1 MG/ML SYRINGE IV PRN (18:19)
[2021-01-07] MEDS ORDERED: ONDANSETRON INJ 2 MG/ML 2 ML VIAL IV PRN (18:19)
[2021-01-07] MEDS ORDERED: TAMSULOSIN HCL 0.4 MG CAP PO PRN (18:19)
--- NOTE | 2021-01-07 18:43 | Fluoroscopy Report ---
FL wrist RT 3V RTN HISTORY: 60 years-old Male RT ORIF DISTAL RADIUS subacute fracture of the distal right radius COMPARISON: Right wrist radiographs 01/03/2021 TECHNIQUE: 3 spot fluoroscopic images of the right wrist were obtained utilizing 25.8 seconds fluoros copy time FINDINGS: Status post placement of distal plate and screw fusion hardware fixating the subacute distal radial f racture. There is improved alignment of the fracture with intact hardware. Expected postoperative sof t tissue swelling and deep tissue air. IMPRESSION: Fluoroscopic assistance as above. ACT 112: Negative or not required by law. The above report was generated using voice recognition software. It may contain grammatical, syntax o r spelling errors. Electronically signed by: Hemal Snider M.D. 01/07/2021 6:41 PM
--- NOTE | 2021-01-07 18:44 | Operative Report ---
Post Operative Report Pre & Post Diagnosis Operation Date: 01/07/21 14:20 Pre-Op Diagnosis: Right subacute distal Radius Displaced Fracture Post-Op Diagnosis: Right subacute distal Radius Displaced Fracture I identified the patient and participated in the time-out.: Yes Procedure Operation Date: 01/07/21 14:20 Actual Procedures p Open Reduction Internal Fixation Right Distal Radius Fracture(Right) - Mello Hussein MD s Right Carpal Tunnel Release(Right) - Mello Hussein MD Surgeon Mello Hussein MD Airplane Cleaner JS Diaz Estimated Blood Loss 30 Findings Consistent with Post-Op Diagnosis Operative findings revealed a markedly displaced distal radius fracture. Was extra-articular with significant translation of volarly. There was certainly some degree and significant amount of healing. Fluids 700 cc Specimens None Anesthesia Type General Complications none Disposition Accompanied Patient To Recovery: No Disposition: Recovery Room Indications Patient is a 60-year-old gentleman with multiple medical comorbidities including seizure and history of alcoholism and hepatitis who sustained a fall about 5 weeks ago. Down the fracture area of his distal radius was initially completely nondisplaced. He was placed in a short arm cast. About a week and half his ago he said he was at home when he felt a significant shift while he was in the bathroom. He did present to the ER over the weekend and x-rays revealed significant displacement of the fracture despite the cast. Patient has no signal use of his upper extremity on the right side due to arm started in the left side due to stroke and therefore he either uses this hand extensively. Considering everything I felt it best to proceed with surgical fixation to give him a functional rest. I was also worried about further displacement and very limited function of his hand. I also thought it best to stabilize this without firm hardware considering his excessive use of his hand despite the fracture. The patient was having some tingling and paresthesias in his thumb due to this and the concern for carpal tunnel syndrome in this patient I elected to proceed with a carpal tunnel release at the same time. Description of Procedure Operative implants consist of: 1. Synthes right 2.4 mm 5 hole shaft distal radius volar locking plate 2. Synthes 2.4 fully threaded cortical screws x3. 3. 2.7 fully threaded cortical screws x1. 4. 2.4 mm locking screws x4. The patient was taken to the operating, identified and placed on the operating table supine position but all contractors were properly padded. IV antibiotics 5 by anesthesia team. General anesthetic was employed by anesthesia team. The right lower upper extremity splint was removed. The right arm tourniquet was placed. I then scrubbed the right hand excessively and extensively with a Hibiclens then prepped with ChloraPrep and draped the right upper extremity in the usual sterile fashion. Attention was first drawn the carpal tunnel release. The right arm was elevated exsanguinated using an Esmarch and turns placed 1250 mmHg. A 3 cm incision was made in the palm just ulnar to the palmaris longus tendon. Blunt dissection was got through subcutaneous tissue down the level of the palmar fascia the palmar fascia was incised longitudinally in line with skin incision. The underlying transverse carpal ligament was identified. Was transected distally with use of a [place] blade knife and then bluntly spread. Attention drawn proximally. Lead dissection was carried out above the ligament proximally. Ligament then transected from them distance of 3 cm proximal to the wrist flexion crease. Ligaments bluntly spread and found to be completely released. I irrigated the wound. Attention drawn the distal radius fracture. Longitudinal incision was made directly over the FCR tendon extending from the flexor crease of the wrist and proximally. Sharp dissection was got through the subcutaneous tissue down to the FCR tendon. The FCR tendon sheath was incised and the FCR tendon was retracted ulnarly. I then incised the dorsal aspect of the sheath. The pronator quadratus and the FPL muscle belly were then stripped off the volar side of the radius. Fracture and displacement was easily visualized. It was clearly healing. I had to spend quite a bit of time taken down the fracture site to mobilize this and release it medially and laterally. I do not also debrided some of the tissue in the area. A freer elevator was then used to get in the fracture site and level of the distal portion and distally dorsally. After several manipulations I was able to nearly anatomically reduce this. A Synthes right volar distal radius locking plate was then selected and placed on the radius and fixed in the oblong hole. Under fluoroscopic guidance I adjusted this to the optimal position and then then tightened the cortical radiology director. I then fixed it proximally with 2 additional cortical screws and one 2.4 locking screw. I placed 3 locking screws distally. Some final x-rays were obtained. Of note, I did have to contour the plate distally so I cannot fill the holes due to the convergence of the screws. I took the wrist through range of motion it moved very smoothly. There is no signs of any motion at all at the fracture site. I irrigated the both wounds extensively. I injected locally with 30 cc of half percent Marcaine with epinephrine. The tourniquet was then let down for turn time 70 minutes. Hemos tasis assured use electrocautery. I then irrigated the wounds again. I closed the skin of the carpal tunnel with 4-0 nylon suture in simple fashion. The volar distal radius wound was then closed with with 3.0 Vicryl suture subcutaneous tissues and a combination of 3-0 and 4-0 nylon sutures in a simple fashion. The arm was then cleaned and dried a sterile dressing composed Xeroform, 4 x 4's, sterile cast padding and a dorsal and volar splint followed by sling were applied. Patient brought out of general incision transferred to the recovery in stable condition. Patient tolerated procedure well and there were no complications. The Emily, my physician field administrative assistant, was present for the entire procedure. His assistance was required and essential proper patient positioning, prepping and draping, surgical exposure, retraction, manipulating the arm, placement of the hardware, closure of the incision site, placement of the sterile bandage and splint and the sling. I attest to the content of the Intraoperative Record and any orders documented therein. Any exceptions are noted below.
[2021-01-07] MEDS: KETOROLAC TROMETHAMINE 15 MG/ML VIAL IV SCH (18:48)
[2021-01-07] MEDS: SODIUM CHLORIDE 0.9% 1000ML 1,000 ML IV SCH ×2 (18:48→20:20)
[2021-01-07] MEDS ORDERED: SODIUM POLYSTYRENE SULFONATE 15G/60ML SUSP PO STA (20:33)
[2021-01-07] MEDS ORDERED: DOCUSATE SODIUM 100 MG CAP PO SCH (21:00)
[2021-01-07] MEDS ORDERED: SENNA 8.6 MG TAB PO SCH (21:00)
[2021-01-07] MEDS: ACETAMINOPHEN 500 MG TAB PO SCH (21:28)
[2021-01-07] MEDS: DOCUSATE SODIUM 100 MG CAP PO SCH (21:29)
[2021-01-07] MEDS: ASPIRIN 81 MG ECTAB PO SCH (21:29)
[2021-01-07] MEDS: ceFAZolin 2000MG 2,000 MG/15 ML SYR IV SCH (21:29)
[2021-01-07] MEDS: SACCHAROMYCES BOULARDII 250 MG CAP PO SCH (21:29)
[2021-01-07] MEDS: traMADol HCL 50 MG TABLET PO PRN (22:54)
--- NOTE | 2021-01-07 23:02 | History and Physical Report ---
DATE OF ADMISSION: 01/07/2021 CHIEF COMPLAINT: Status post open reduction internal fixation of the right distal radius fracture.Consulted for medical management. HISTORY OF PRESENT ILLNESS: This is a 60-year-old male with past medical history significant for hypertension, left hemiplegia post-stroke, history of alcoholism, alcoholic liver cirrhosis, currently abstinence from alcohol. Lives alone, ambulates with a cane. Had a fall and fracture of the right distal radius, status post surgery, tolerated the procedure okay. Currently resting comfortably. Ate his dinner, able to swallow okay. Denies any chest pain. No shortness of breath, no cough, no headache, no nausea, no vomiting, no abdominal pain, somewhat constipated. Normal bladder movements. ALLERGIES: LATEX, ZYBAN. PAST MEDICAL HISTORY: As mentioned above. PAST SURGICAL HISTORY: Exploration of maxillary sinus, prolactinoma surgery, left knee arthroscopy, left ankle fracture repair. Currently, status post open reduction internal fixation of the right distal radius fracture. MEDICATIONS: The patient is on Lasix 40 mg p.o. daily, spironolactone 100 mg p.o. daily, vitamin D 1000 mcg p.o. daily, Colace 100 mg p.o. b.i.d., omeprazole 20 mg p.o. daily, thiamine 100 mg p.o. a.m., tramadol 50 mg p.o. q. 6 hours p.r.n. FAMILY HISTORY: Significant for father had diabetes, heart disorder, renal disease. SOCIAL HISTORY: Lives alone. Smokes 2 packs of cigarettes daily. History of alcoholism, currently not drinking since October of 2020. Used to use marijuana. REVIEW OF SYSTEMS: As per HPI. Rest of the review of systems negative. PHYSICAL EXAMINATION: GENERAL: The patient is of moderate build, not in acute distress. VITAL SIGNS: Temperature 36.4, pulse 72, respiratory rate 20, blood pressure 107/71, oxygen 94% on room air. HEENT: Atraumatic. NECK: No neck masses seen. CARDIOVASCULAR: S1, S2 heard. Regular rate and rhythm. No murmur, no gallop. RESPIRATORY SYSTEM: Normal AP diameter. No accessory muscle use. Occasional bilateral mild wheezing. No crackles. ABDOMEN: Soft, bowel sounds present, nontender. CENTRAL NERVOUS SYSTEM: Alert and oriented. Speech is clear, no facial droop. Left extremity weakness present. EXTREMITIES: Right arm, status post open reduction internal fixation of right distal radial fracture. Dressing intact. LABORATORY DATA: Sodium 129, potassium 5.5, chloride 98, bicarbonate 22, BUN 19, creatinine 1.3, serum glucose 90, calcium 9.7. SARS-CoV-2 PCR negative. Influenza A and B PCR negative. RSV PCR negative. ASSESSMENT AND PLAN: This is a 60-year-old male who presents with right distal fracture and status post open reduction internal fixation of the right distal fracture. 1. Open reduction and internal fixation of the right distal fracture: Further management as per orthopedics. Follow up with orthopedics. 2. Alcoholic liver cirrhosis: Follows with GI. Currently not drinking since October 2020. On Aldactone and Lasix. He was to get scheduled paracentesis, but it was stopped as ascites is improved. May need to cut back on the Aldactone dose because of hyperkalemia. 3. Hyponatremia and hyperkalemia: The patient has chronic hyponatremia with sodium in 130's and potassium levels are in high normal, but today potassium is 5.5 and sodium is 129. Getting fluids. We will give a dose of Kayexalate. Hold Aldactone. Because of hyperkalemia, may need to stop Aldactone or cut back on the dose and follow closely with the PCP.Will follow labs. 4. Constipation: Will place on lactulose p.r.n. At home on no laxatives currently. 5. Hypertension, on diuretics: Currently, blood pressure is okay. We will monitor. 6. History of stroke with left hemiplegia: The patient is not taking any aspirin at home. Needs followup with PT and OT prior to discharge. 7. Deep venous thrombosis prophylaxis: As per orthopedics. 8. Disposition: As per orthopedics. [facility]
[2021-01-08] MEDS: KETOROLAC TROMETHAMINE 15 MG/ML VIAL IV SCH ×3 (00:55→14:31)
[2021-01-08] MEDS: ACETAMINOPHEN 500 MG TAB PO SCH ×2 (05:20→14:31)
[2021-01-08] MEDS: ceFAZolin 2000MG 2,000 MG/15 ML SYR IV SCH (05:21)
[2021-01-08 07:00] LABS: BUN Creatinine Ratio 18.7 (10-20); Calcium 8.6 mg/dl (8.5-10.1); Creatinine Clr Calc Pharmacy 70.9 ml/min; Est GFR (Non-African American) 65.5
[2021-01-08] MEDS ORDERED: SPIRONOLACTONE 100 MG TAB PO SCH (09:00)
[2021-01-08] MEDS ORDERED: PANTOprazole 40 MG TAB PO SCH (09:00)
[2021-01-08] MEDS ORDERED: CHOLECALCIFEROL 1,000 UNITS 25 MCG TAB PO SCH (09:00)
[2021-01-08] MEDS ORDERED: FUROSEMIDE 40 MG TAB PO SCH (09:00)
[2021-01-08] MEDS ORDERED: MULTIVITAMIN TAB PO SCH (09:00)
[2021-01-08] MEDS ORDERED: THIAMINE HCL 100 MG TAB PO SCH (09:00)
[2021-01-08] MEDS: DOCUSATE SODIUM 100 MG CAP PO SCH (10:06)
[2021-01-08] MEDS: SACCHAROMYCES BOULARDII 250 MG CAP PO SCH (10:07)
[2021-01-08] MEDS: ASPIRIN 81 MG ECTAB PO SCH (10:08)
[2021-01-08] MEDS: traMADol HCL 50 MG TABLET PO PRN (10:54)
--- NOTE | 2021-01-08 15:05 | Orthopedic Progress Note ---
Date of Service January 08, 2021 Assessment & Plan (1) Distal radius fracture, right: POD #1 from right carpal tunnel release and ORIF of the distal radius fracture. Pain is reasonably controlled. He feels that he can be discharged to home today. account services representative is working on home health for him. He was seen and examined by Dr. Hussein. He should keep his hand elevated. He can use it for eating/drinking but should try to avoid pressure/weight bearing on the right hand. He should leave the splint intact until 2 week follow up. If the dressing needs changed he can let us know. Follow up 2 weeks post op. Subjective . 60 year old male, POD #1 from ORIF right distal radius fracture and carpal tunnel release. He has some wrist pain but seems reasonably controlled. He hasn't felt real well after he eats, no additional night sweats. Review of Systems All systems reviewed & are unremarkable except as noted in HPI & below. Physical Exam alert and oriented. NAD. RUE: dressing/splint clean, dry, intact. Moves fingers appropriately with flexion/extension. Reports some diminished sensation in fingers but can feel light touch. Brisk refill. Results & Data Results & Data Laboratory Results . Diagnostic Findings . PG Care Time/CCT Total # of Minutes Spent Total Time Spent with Patient: Total time spent is greater than 50% in coordination of care (as documented) at patient's floor/unit and/or counseling patient: Coding Level of Care Code 17990 Post Operative Follow-Up Diagnoses Distal radius fracture, right S52.501S Encounter type: sequela Fracture morphology: unspecified fracture morphology Fracture type: closed (1) Distal radius fracture, right Encounter type: sequela Fracture morphology: unspecified fracture morphology Fracture type: closed Qualified Code(s): S52.501S - Unspecified fracture of the lower end of right radius, sequela
--- NOTE | 2021-01-12 18:33 | Discharge Summary ---
Date of Service January 12, 2021 Discharge Data Consultations 01/07/21 18:19 Consult Hospitalist Routine Procedures Performed Operation Date: 01/07/21 14:20 Actual Procedures p Open Reduction Internal Fixation Right Distal Radius Fracture(Right) - Mello Hussein MD s Right Carpal Tunnel Release(Right) - Mello Hussein MD Hospital Course (1) Distal radius fracture, right: This patient is a 60 year old male admitted on 01/07/21 and underwent carpal tunnel release and ORIF of the distal radius fracture. He tolerated the procedure well and there were no complications. Transferred to the PACU post op and later to the orthopedic floor for further care. He was given ancef for antibiotic prophylaxis. He was also given THOM stockings, SCDs for DVT prophylaxis. Vital signs were monitored during his hospital stay and remained stable. Did not require any blood transfusions. There were no complications duri ng his hospital stay. He was seen by the hospitalist service as well. By post op day #1 the patient was tolerating a regular diet, pain was reasonably controlled with oral pain medicine, and he was participating in physical therapy. On post op day #1 the patient was discharged home and set up with home health care. He was given printed discharge instructions. He should keep his splint clean, dry, intact. He should not be weight bearing on this right arm. Follow up approximately 2 weeks post op or sooner if there are problems or concerns. Coding Level of Care Code None Diagnoses Distal radius fracture, right S52.501S Encounter type: sequela Fracture morphology: unspecified fracture morphology Fracture type: closed
== END 2021-01-08 16:42 | disposition home health service (06) | DRG 501 ==
LOC: ASU 12:13 → 3E 17:00